=== PATIENT | female | born 1940 | race Caucasian/White ===

== ENCOUNTER → 2017-04-18 | Outpatient (CLI) | payer OTHER, MEDICARE ==
[~2017-04-18] MED LIST: ASPI-232 PO; ATOR10TA88 PO; CALC500T83 PO; CHOL100027 PO; GLUC10007 PO; LPR25 PO; MULT-513 PO; NAPR220T40 PO; PRN10125 PO
== END | disposition home or self-care (01) ==
LOC: C.RDSM 13:23
PROVIDERS: ATTEND Orthopaedic Surgery Sports Medicine
DX: M25.561 Pain in right knee (principal); M25.562 Pain in left knee

== ENCOUNTER → 2017-05-07 | Outpatient (CLI) | payer OTHER, MEDICARE ==
--- NOTE | 2017-05-07 13:10 | MAMMOGRAPHY REPORT ---
BILATERAL DIGITAL SCREENING MAMMOGRAM WITH CAD: 05/07/2017 CLINICAL HISTORY: Routine screening. TECHNIQUE: Bilateral CC and MLO views were obtained. Current study was also evaluated with a Compute r Aided Detection (CAD) system. COMPARISON: Comparison is made to exams dated: 05/03/2016 mammogram, 04/27/2015 mammogram, 04/22/2014 calista mogram, 04/17/2013 mammogram, 04/15/2012 mammogram, and 04/10/2011 mammogram - [facility]. BREAST COMPOSITION: There are scattered areas of fibroglandular density in both breasts. FINDINGS: There is a focal asymmetry with possible associated calcification in the 6:00 middle one t hird of the left breast, for which additional spot magnification views and possible ultrasound are re commended. A possible area of architectural distortion in the anterior superior left breast, only se en on the MLO view. Although this most likely represents normal overlapping fibrolinear markings, ad ditional spot compression tomosynthesis views and possibly ultrasound are recommended. There are mild vascular calcifications bilaterally. No other suspicious mass, architectural distortio n or cluster of microcalcifications is seen. IMPRESSION: ACR BI-RADS CATEGORY 0: INCOMPLETE EVALUATION: NEED ADDITIONAL IMAGING EVALUATION The focal asymmetry with possible associated calcification in the 6:00 left breast, and possible area of architectural distortion in the superior anterior left breast need additional imaging evaluation. The patient will be called to schedule an appointment. Approximately 10% of breast cancers are not detected with mammography. A negative mammographic report should not delay biopsy if a clinically suggestive mass is present. Irene Zimmerman M.D. ay/:05/07/2017 12:23:27 Power Manager: Risa Baldwin RT(R)(M), [facility] letter sent: Addl Imaging 0 BI-RADS Code: ACR BI-RADS Category 0: Incomplete Evaluation: Need Additional Imaging Evaluation
== END | disposition home or self-care (01) ==
LOC: C.MAMM 10:26
PROVIDERS: ATTEND Internal Medicine
DX: Z12.31 Encounter for screening mammogram for malignant neoplasm of breast (principal); N64.89 Other specified disorders of breast

== ENCOUNTER → 2017-05-10 | Outpatient (CLI) | payer OTHER, MEDICARE ==
--- NOTE | 2017-05-10 15:58 | MAMMOGRAPHY REPORT ---
UNILATERAL LEFT DIGITAL DIAGNOSTIC MAMMOGRAM TOMOSYNTHESIS AND TARGETED LEFT ULTRASOUND: 05/10/2017 CLINICAL HISTORY: Callback from screening mammogram for left breast calcifications, asymmetry, and po ssible distortion. TECHNIQUE: Breast tomosynthesis in addition to standard 2D mammography was performed. Spot compress ion left MLO 2-D and tomosynthesis images and spot magnification left CC and ML views were obtained. COMPARISON: Comparison is made to exams dated: 05/07/2017 mammogram, 05/03/2016 mammogram, 04/27/2015 ma mmogram, 04/22/2014 mammogram, 04/17/2013 mammogram, and 04/15/2012 mammogram - [facility]. BREAST COMPOSITION: There are scattered areas of fibroglandular density in the left breast. FINDINGS: Spot magnification views of the left breast demonstrate a round 4 mm mass with obscured ma rgins in the left 6:00 breast. A single calcification is seen within the mass, which is smudgy and p unctate on the cc view and becomes more linear on the lateral view suggestive of layering within a cy st. The previously described area of questionable architectural distortion in the left superior madeline st does not persist on the additional views; the tissue in this region has the appearance of normal f ibroglandular tissue on the tomosynthesis images. Targeted ultrasound was performed of the left 6:00 breast in the region of the mammographic mass. In the left 6:00 periareolar breast, there is a round circumscribed anechoic 4 x 3 x 4 mm mass. This c orresponds with the mammographic mass and associated layering calcification and is consistent with a benign cyst. IMPRESSION: ACR BI-RADS CATEGORY 2: BENIGN, TARGETED ULTRASOUND ACR BI-RADS CATEGORY 2: BENIGN The mammographic mass and associated internal layering calcification in the left 6:00 breast correspo nds with a benign 4 mm simple cyst on ultrasound. There is no mammographic or targeted sonographic e vidence of malignancy. A 1 year screening mammogram is recommended. The patient has been verbally no tified of the results. Approximately 10% of breast cancers are not detected with mammography. A negative mammographic report should not delay biopsy if a clinically suggestive mass is present. Carmen Jha M.D. /:05/10/2017 13:23:25 Roll Shop Supervisor: Kim WILKES(R)(M), [facility] letter sent: Normal / BI-RADS Code: ACR BI-RADS Category 2: Benign Ultrasound BI-RADS: ACR BI-RADS Category 2: Benign
== END | disposition home or self-care (01) ==
LOC: C.MAMM 12:59
PROVIDERS: ATTEND Internal Medicine
DX: N63 Unspecified lump in breast (principal); R92.1 Mammographic calcification found on diagnostic imaging of breast

== ENCOUNTER → 2018-04-11 | Outpatient (CLI) | payer OTHER, MEDICARE ==
[~2018-04-11] MED LIST changes: +ATOR10TA82 PO; -ATOR10TA88 PO
== END | disposition home or self-care (01) ==
LOC: C.RDSM 10:30
PROVIDERS: ATTEND Orthopaedic Surgery Sports Medicine
DX: M17.0 Bilateral primary osteoarthritis of knee (principal)

== ENCOUNTER 2019-03-04 08:23 | Inpatient (IN) ==
--- NOTE | 2019-02-04 16:29 | PAT Medication Instructions ---
Medication Instructions Date of Service February 04, 2019 Home Medications alendronate 70 mg PO WK atorvastatin 40 mg PO QPM lisinopril 5 mg PO QAM loratadine 10 mg PO QAM metoprolol tartrate 100 mg PO BID multivitamin 1 tab PO QAM tramadol 50 mg PO Q6H PRN warfarin 4 mg PO QPM Centrum Silver Women 1 tab PO QAM cholecalciferol (vitamin D3) [Vitamin D3] 2,000 unit PO QAM gabapentin 200 mg PO BID Continue as directed alendronate 70 mg PO WK ASK your prescriber and surgeon warfarin 4 mg PO QPM DO NOT take the morning of surgery lisinopril 5 mg PO QAM loratadine 10 mg PO QAM multivitamin 1 tab PO QAM Centrum Silver Women 1 tab PO QAM cholecalciferol (vitamin D3) [Vitamin D3] 2,000 unit PO QAM Take morning of surgery With a small sip of water, OTHERWISE NOTHING TO EAT OR DRINK AFTER MIDNIGHT: metoprolol tartrate 100 mg PO BID tramadol 50 mg PO Q6H PRN (okay to take up to 4 hours prior to surgery if needed) gabapentin 200 mg PO BID Take evening before surgery atorvastatin 40 mg PO QPM metoprolol tartrate 100 mg PO BID tramadol 50 mg PO Q6H PRN (if needed) gabapentin 200 mg PO BID Other Notes If you have any questions please call us at [phone] or [phone] or [phone] or [phone]
--- NOTE | 2019-02-05 12:45 | Anesthesiology Consultation ---
Date of Service February 05, 2019 Assessment & Plan (1) Encounter for pre-operative examination: - Cardio: 01/29/19: "should her echocardiogram come back unremarkable then I would place her at a moderate risk for any adverse perioperative cardiovascular event with her risk being approximately less than 5%. She was further counseled that no further cardiac testing or venture would further lower that risk." ECHO done 02/24 and reviewed by cardio: 02/24/19: "only mild mitral stenosis present.. risk as previously discussed." - PCP: 02/06/19: Pt seems to be at low cardiac risk for this minor surgery but due to uncontrolled AFib needs to adjust meds and echo done before clearance. Metoprolol dose increased. ECHO scheduled for 02/24. - Check coags AM DOS Chart Review Chart Review: Acceptable Risk for Surgery and Patient seen in Pre Admission Testing Teaching & Discussion Pre-Anesthesia Teaching/Discussion Notes: Instructed NPO after midnight before surgery,except medications with 15 cc of water. Medication instructions provided according to the PAT guidelines. History Surgery Operation Date: 03/04/19 10:25 Proposed Procedures p Right Total Knee Arthroplasty - Dedrick Wil Mcarthur MD Height/Weight Height: 5 ft 2 in Weight: 88.7 kg Allergies Allergy/AdvReac Type Severity Reaction Status Date / Time codeine Allergy Unknown NAUSEA AND Verified 01/30/19 13:07 VOMITING oxycodone AdvReac Mild HEADACHE, Verified 01/30/19 13:07 VOMIT Medications Home Medications Medication Instructions Recorded Confirmed Last Taken alendronate 70 mg PO WK 01/20/19 01/30/19 01/26/19 atorvastatin 40 mg PO QPM 01/20/19 01/30/19 01/29/19 lisinopril 5 mg PO QAM 01/20/19 01/30/19 01/30/19 loratadine 10 mg PO QAM 01/20/19 01/30/19 01/30/19 multivitamin 1 tab PO QAM 01/20/19 01/30/19 01/30/19 tramadol 50 mg PO Q6H PRN 01/20/19 01/30/19 Unknown warfarin 4 mg PO QPM 01/20/19 01/30/19 01/26/19 Centrum Silver Women 1 tab PO QAM 01/30/19 01/30/19 01/30/19 cholecalciferol (vitamin D3) 2,000 unit PO QAM 01/30/19 01/30/19 01/30/19 [Vitamin D3] gabapentin 200 mg PO BID 01/30/19 01/30/19 01/30/19 metoprolol tartrate 25 mg PO TID 02/11/19 02/11/19 Unknown Past Medical History Medical History Atrial fibrillation PAROXYSMAL ON WARFARIN CKD (chronic kidney disease) STAGE III Carotid artery disease S/P LEFT CEA (2014) Hyperlipidemia Hypertension Osteoarthritis Osteoporosis Spinal stenosis Exercise / Class Metabolic Activity III < 4 Walking/Shop/Light housework Past Family History Family History Family/Other Pancreatic cancer Past Surgical History Surgical History History of appendectomy History of cataract surgery History of cholecystectomy History of colonoscopy History of left-sided carotid endarterectomy 2014 History of tonsillectomy History of tooth extraction History of total abdominal hysterectomy and bilateral salpingo-oophorectomy Past Anesthesia History No Hx of Anesthesia Complications and No Family Hx of Anesthesia Complications History of PONV No Hx of PONV and Hx of Motion Sickness (REMOTE; NO RECENT ISSUES) Social History Smoking Status: Former smoker Do You Dip or Chew Tobacco: No Smoking End Date: QUIT 20 YEARS AGO Hx Alcohol Use: Yes Alcohol type: wine alcohol intake frequency: a few times a month Hx Substance Use: No substance use type: does not use Review of Systems Patient denies chest pain, shortness of breath, reflux, cough, wheezing, palpitations. Physical Exam Vital Signs VITALS BP 103/71 (per patient, BP typically low to normal range) P 90 TEMP 98.4 SP02 94%RA RESP 20 PHYSICAL Full neck and c-spine range of motion. Full TMJ range of motion. TMD 3 finger breaths Mallampati Score 2 Dentition: full dentures upper/lower; edentulous Lungs: clear throughout to auscultation Cardiac: irregular rhythm, regular rate, no murmurs noted Spine: normal Carotid arteries: negative bruit Extremities: no edema Testing Laboratory Results 02/05/19 13:00 02/05/19 13:00 PT 18.0 Seconds (9.0-12.0) H 02/05/19 13:00 INR 1.8 (0.9-1.1) H 02/05/19 13:00 APTT 31.9 Seconds (21.0-31.0) H 02/05/19 13:00 Blood Type O Positive 02/05/19 13:00 Antibody Screen NEGATIVE 02/05/19 13:00 02/05/19 13:00 Urine Culture - Final Urine,Clean Catch More than three types of organisms present, all high counts mixed probable skin etta - No further identifications or sensitivities to follow. Electrocardiogram Date: 01/29/19 A. fib with RVR at 110bpm (EKG done at cardio preop evaluation. No medication changes made. HR 90 at subsequent PAT evaluation on 02/05/19*) Echocardiogram Date: 02/24/19 LVEF 60-64%. No RWMA. Moderately increased cLV wall thickness. Moderate LAE. Mi ldly calcified AV. Moderate mitral annular calcification. Moderately calcified MV leaflets. Mild mitral stenosis. Moderate TR. Other Testing Carotid artery duplex: 02/24/19: Right carotid artery duplex examination indicates evidence of 50-69% stenosis of the internal carotid artery. Left carotid artery duplex examination indicates evidence of less than 50% stenosis of the internal carotid artery. B/L vertebral artery demonstrates antegrade flow.
[2019-02-05 13:58] LABS: Basophils # (auto) 0.03 K/uL (0-0.2); Basophils % (auto) 0.3 %; Eosinophils # (auto) 0.12 K/uL (0-0.5); Eosinophils % (auto) 1.3 %; Hematocrit (blood only) 42.1 % (37-47); Hemoglobin 13.7 g/dL (12.0-16.0); Immature Granulocytes # (auto) 0.03 K/uL (0.00-0.02); Immature Granulocytes % (auto) 0.3 %; Lymphocytes # (auto) 1.84 K/uL (1.2-3.4); Lymphocytes % (auto) 20.6 %; Mean Corpuscular Hemoglobin 31.5 pg (25-34); Mean Corpuscular Hgb Conc 32.5 g/dL (32-36); Mean Corpuscular Volume 96.8 fL (80-100); Mean Platelet Volume 10.2 fL (7.4-10.4); Monocytes % (auto) 7.8 %; Neutrophils # (auto) 6.22 K/uL (1.4-6.5); Neutrophils % (auto) 69.7 %; Platelet Count 236 K/uL (130-400); RDW Coefficient of Variation 14.4 % (11.5-14.5); RDW Standard Deviation 51.6 fL (36.4-46.3); Red Blood Count 4.35 M/uL (4.2-5.4); White Blood Count 8.94 K/uL (4.8-10.8)
[2019-02-05 14:15] LABS: INR 1.8 (0.9-1.1); Partial Thromboplastin Ratio 1.2; Partial Thromboplastin Time 31.9 Seconds (21.0-31.0)
[2019-02-05 14:20] LABS: Albumin Level 3.8 gm/dl (3.4-5.0); BUN Creatinine Ratio 18.6 (10-20); Bilirubin Direct 0.1 mg/dl (0-0.2); Calcium 9.9 mg/dl (8.5-10.1); Est GFR (African American) 45.3; Est GFR (Non-African American) 39.1
[2019-02-05 14:23] LABS: Bilirubin,Total 0.6 mg/dl (0.2-1); Total Protein 7.5 gm/dl (6.4-8.2)
[~2019-03-04 08:23] MED LIST changes: -ASPI-232 PO; -ATOR10TA82 PO; +BUPIVACAINE 0.5 % 5 MG/1 ML PF 10ML VIAL ONE; -CALC500T83 PO; +CEFAZOLIN 2000MG 2,000 MG/15 ML SYR IV SCH; -CHOL100027 PO; +CeleBREX 200 MG CAP PO SCH; +EPINEPHrine INJ 1 MG/ML AMP ONE; -GLUC10007 PO; -LPR25 PO; +LR 500ML BOLUS, THEN 15ML/HR IV SCH; +LR 60ML/HR IV SCH; -MULT-513 PO; -NAPR220T40 PO; -PRN10125 PO; +ROPIVACAINE 0.5% 5 MG/ML 30 ML VIAL ONE; +ROPIVACAINE 0.5% HCL/PF 150 MG, BUPIVACAINE 0.5% MPF 30 ML, EPINEPHrine 0.15 MG, Ketoro... INFIL SCH; +TRANEXAMIC ACID 1,000 MG **IV Intra-op IV SCH; +TRANEXAMIC ACID 1,000 MG **IV Pre-op IV SCH
[2019-03-04 09:18] LABS: INR 1.1 (0.9-1.1); Partial Thromboplastin Time 27.1 Seconds (21.0-31.0); Prothrombin Time 11.5 Seconds (9.0-12.0)
[2019-03-04] MEDS ORDERED: MIDAZOLAM HCL 1 MG/ML 2ML VIAL ONE (09:48)
[2019-03-04] MEDS ORDERED: fentaNYL citrate 100 MCG/2 ML VIAL ONE (09:48)
[2019-03-04] MEDS ORDERED: LIDOCAINE HCL 2% 2 ML VIAL/AMP(20MG/ML) INFIL ONE (09:48)
[2019-03-04] MEDS ORDERED: PROPOFOL IV EMULSION 10 MG/ML 20 ML VIAL IV ONE (09:48)
--- NOTE | 2019-03-04 10:13 | History & Physical Bridge Note ---
Date of Service March 04, 2019 History & Physical Bridge Note I have examined the patient, reviewed the History & Physical and in the interval since the performance of the History & Physical I have noted the following changes of clinical significance: no changes noted
[2019-03-04] MEDS ORDERED: ORTHO JOINT ANESTHETIC ONE (10:15)
--- NOTE | 2019-03-04 12:55 | Operative Report ---
Post Operative Report Pre & Post Diagnosis Operation Date: 03/04/19 10:20 Pre-Op Diagnosis: Right Knee Osteoarthritis Post-Op Diagnosis: Right Knee Osteoarthritis Procedure Operation Date: 03/04/19 10:20 Actual Procedures p Right Total Knee Arthroplasty(Right) - Dedrick Mcarthur MD Surgeon Dedrick Mcarthur MD Senior Auditor Michael gonzales PA-C (no fellow avail) Estimated Blood Loss 75 Findings See Below Preop ROM -- There was 10 degrees to 125 degrees of flexion Ligamentous examination -- revealed stable Radha, posterior drawer, varus and valgus stress at 0 and 30 degrees. [place] Type IV changes of medial compartment, type IIIIV changes in the patellofemoral compartment, type II changes in the lateral compartment. Fluids 600 cc Specimens Right knee contents. Drains n/a Anesthesia Type MAC Spinal Regional Complications none Indications This is a 78-year-old female who has clinical and radiographic findings consistent with osteoarthritis of the a right knee. I recommended that a right total knee replacement be performed. The patient understands the risks of surgery, which include but not limited to: bleeding, infection, re-operation, damage to nerves and arteries, continued knee pain, knee stiffness, DVT, and . The patient understands all of these instructions and explanations, all of his questions have been satisfactorily addressed and the patient has elected to proceed. Informed consent was signed. Description of Procedure IMPLANTS: 1. Femur: Triathlon #4 Right PS. 2. Tibia: Triathlon #4 [place]. 3. Insert: Triathlon #4 x 11 mm PS X3 poly. 4. Patella: Triathlon A32 x 10 mm X3 poly. 5. Simplex cement. Procedure: The patient was taken to the Operating Room and placed in the supine position after spinal and adductor canal nerve block was administered. My initials and a multidisciplinary time-out were used to identify the right leg as the correct operative limb. A tourniquet was placed high in the thigh. Prior to the incision, 2 grams of intravenous Ancef were given. The right leg was then prepped and draped in a standard sterile fashion. An Esmarch was used to exsanguinate the leg and the tourniquet was inflated to 250 mmHg. The planned mid-line 20 cm incision was created exposing the extensor mechanism. The medial parapatellar arthrotomy was made and the patella was everted. The patella was addressed first. It was prepared by reaming from 22 mm down to 12 mm. An A32 button was found to fit best. The peg holes were made in the standard fashion. The femur was addressed next and the guide sj was placed intramedullary. The initial cutting block was placed with 5 degrees of valgus and removing 10 mm for the anterior cut. The cut was made and the 4-in-1 cutting block for a size 4 femur was placed. These cuts and the cuts to place the box were made in the standard fashion. Our attention was then drawn to the tibia cut with the external cutting guide, taking 2 mm from the medial low side. There was sufficient extension and flexion gap to fit a 11 mm spacer. A #4 Tibial baseplate fit well. A trial with a 11 mm spacer showed excellent stability in both flexion and extension, with good ligament balance. Range of motion of 0-130 degrees. The tibial baseplate was pinned and the final preparation for the keel and stem was made. All the trial components were tested again, with good stability and thumbs free tracking of the patella. All components were removed. The tourniquet was deflated. Hemostasis was obtained. 90 ml of total knee cocktail were injected into the soft tissues and periosteum. A bone plug was placed in the femur and covered with bone wax. After a 15 minute break, the limb was exsanguinated again and the tourniquet was re-inflated. All surfaces were copiously irrigated prior to placement of the components. The femoral component and Tibial baseplate were placed with the first and an 11 mm X3 poly was placed. Next the Patellar button was placed using the same batch Simplex cement. Once the cement had cured, the excellent range of motion and stability were unchanged. The extensor mechanism was closed with 1-0 and 0 Vicryl with the knee bent approximately 60 degrees in a standard fashion. The peritenon and deep fascia was closed with 2-0 Vicryl. The subcutaneous layer was closed with 3-0 Vicryl. The skin was closed with Zipline. The limb was cleaned and dried. 4x4 dressing was placed over top followed by ABDs, sterile Webril, and a foot to thigh Robin bandage. The patient was then transferred to the Recovery Room in stable condition. The sponge and needle counts were correct. POST-OP INSTRUCTIONS: The patient will be WBAT. The patient will be admitted to the hospital. The patient will use the knee immobilizer when ambulating and standing until good quad control is achieved. Labs will be obtained during her stay. DVT prophylaxis will included placing her back on her back on Coumadin, TEDs, and mechanical foot pumps. The dressing will be changed prior to their discharge or postop day #2 and covered with a Silverlon dressing, whichever comes first. I attest to the content of the Intraoperative Record and any orders documented therein. Any exceptions are noted below.
--- NOTE | 2019-03-04 12:55 | Post Operative Brief Note ---
Immediate Post Op Note v1 Date of Surgery March 04, 2019 Pre & Post Diagnosis Operation Date: 03/04/19 10:20 Pre-Op Diagnosis: Right Knee Osteoarthritis Post-Op Diagnosis: Right Knee Osteoarthritis Procedure Operation Date: 03/04/19 10:20 Actual Procedures p Right Total Knee Arthroplasty(Right) - Dedrick Mcarthur MD Surgeon Dedrick Mcarthur MD Pattern Grader Cutter Michael gonzales PA-C (no fellow avail) Estimated Blood Loss 75 Findings Consistent with Post-Op Diagnosis Fluids 600 cc Specimens Right knee contents. Anesthesia Type MAC Spinal Regional Complications none
[2019-03-04] MEDS ORDERED: bisacodyL 10 MG SUPP PR PRN (13:01)
[2019-03-04] MEDS ORDERED: ALUMINUM/MAGNESIUM SUSP 30 ML UDC PO PRN (13:01)
[2019-03-04] MEDS ORDERED: DiphenhydrAMINE HCL 50 MG/ML VIAL IV PRN (13:01)
[2019-03-04] MEDS ORDERED: MAGNESIUM HYDROXIDE SUSP 30 ML UDC PO PRN (13:01)
[2019-03-04] MEDS ORDERED: METOCLOPRAMIDE HCL INJ 5 MG/ML 2 ML VIAL IV PRN (13:01)
[2019-03-04] MEDS ORDERED: NALOXONE HCL 0.4 MG/1 ML VIAL/CARP IV PRN (13:01)
[2019-03-04] MEDS ORDERED: HYDROmorphone INJ 0.5 MG/0.5 ML SYR IV PRN (13:07)
--- NOTE | 2019-03-04 13:21 | Operative Report ---
Post Operative Report Pre & Post Diagnosis Operation Date: 03/04/19 10:20 Pre-Op Diagnosis: Right Knee Osteoarthritis Post-Op Diagnosis: Right Knee Osteoarthritis Procedure Operation Date: 03/04/19 10:20 Actual Procedures p Right Total Knee Arthroplasty(Right) - Dedrick Mcarthur MD Surgeon Dedrick Mcarthur MD Executive Meeting Manager Michael gonzales PA-C (no fellow avail) Estimated Blood Loss 75 Findings Consistent with Post-Op Diagnosis Specimens soft tissue and bone Complications none Indications See Dr Mcarthur operative report for full details. Description of Procedure See Dr Mcarthur operative report for full details. I was certified surgical tech/first assistant during entire case to include prepping, draping, limb and instrument handling, wound closure, dressings. I attest to the content of the Intraoperative Record and any orders documented therein. Any exceptions are noted below.
--- NOTE | 2019-03-04 13:44 | Anesthesiology Progress Note ---
Date of Service March 04, 2019 Anesthesia Post Procedure Vital Signs Vital Signs: Temp Pulse Pulse Resp BP Pulse Ox 03/04/19 13:35 94 H 12 127/88 99 03/04/19 13:25 92 H 17 127/96 95 03/04/19 13:15 92 H 22 107/80 94 03/04/19 13:06 36.6 C 101 H 20 108/71 95 03/04/19 08:56 36.8 C 93 H 18 122/76 93 Pain Intensity Right Knee: Pain Intensity: 0 Transfer of Care Handoff Completed per policy Notes Mental Status: alert / awake / arousable Patient Amnestic to Procedure: Yes Nausea / Vomiting: adequately controlled Pain: adequately controlled Airway Patency, RR, SpO2: stable & adequate BP & HR: stable & adequate Hydration State: stable & adequate Neuraxial Anesthesia: was administered and sensory block is resolving Anesthetic Complications: no major complications apparent and Pt Satisfied with anesthetic care
--- NOTE | 2019-03-04 13:44 | XRay Report ---
XR knee RT 2V routine CLINICAL HISTORY: Surgical Post Op COMPARISON: None. DISCUSSION: Anatomic alignment posttotal right knee arthroplasty. Good contact between prosthetic com ponent and underlying Bone. Expected postoperative soft tissue change. IMPRESSION: Anatomic alignment posttotal right knee arthroplasty. The above report was generated using voice recognition software. It may contain grammatical, syntax or spelling errors. Electronically signed by: Benoit Lemus M.D. 03/04/2019 1:43 PM
[2019-03-04] MEDS: METOPROLOL TARTRATE 25 MG TAB PO SCH ×3 (15:50→20:12)
[2019-03-04] MEDS ORDERED: WARFARIN SOD 5 MG TAB PO ONE (16:00)
[2019-03-04] MEDS ORDERED: WARFARIN SOD 5 MG TAB PO SCH (17:00)
[2019-03-04] MEDS: ORTHO WARFARIN NOMOGRAM SCH (17:02)
--- NOTE | 2019-03-04 17:31 | Hospitalist Consultation ---
Date of Consultation March 04, 2019 Assessment & Plan (1) Status post right knee replacement: This is an 78yo F with a PMH of HTN, paroxysmal atrial fibrillation on Coumadin, CKD III, h/o L carotid endarterectomy and other medical problems listed below who is POD #0 s/p R TKA by Dr. Mcarthur. -POD#0 s/p R TKA by Dr. Mcarthur -Pt is doing well post-operatively -Per ortho for pain control, wound care, anticoagulation and activities -Monitor H&H (EBL: 75 ml, pre-op hgb of 13.7). Continue incentive spirometry, PT/OT when appropriate (2) Paroxysmal atrial fibrillation: Recently had Lopressor dose increased to 37.5mg TID. Will continue -Coumadin held 5 days pre-operatively, resumed dose of 5mg this afternoon -Monitor daily INR (3) Hypertension: Normotensive -Continue home dose Lopressor, lisinopril (4) CKD (chronic kidney disease), stage III: Pre-operative creatinine of 1.29 with GFR of 39.1 -Monitor with daily BMP (5) Hyperlipidemia: Continue statin DVT Ppx: Per primary PCP: [facility] Patient seen in collaboration with Dr. Davidson. Please see addendum. Supervising Physician Co-Signing Physician Notes 78 yo F post op R knee surgery today. She is doing well, recently took messi 10mg 1 hr ago and BP is 160/100. She feels her pain is bearable and the medication is starting to work although not quite effective yet. She reports taking tramadol BID at home for her OA pain which she still feels in addition to the new post-op pain. She was instructed to take metoprolol tartrate 100mg pre- operatively, which she took this morning at home. This was based off an [facility] medication list where her home medication was incorrectly listed as 100mg BID. She actually takes it 37.5mg PO TID, and this has been continued. Her heart rate is elevated because she has not had any beta-cinthia since this morning and this is short-acting, in addition to the post-op recovery and stress including pain. Her BP is also up likely as a result of pain and not having her lisinopril today. On exam she is calm and comfortable in no acute distress. She is moving around the bed with ease. R leg is NVI. Cardiac exam revealed an irregular rhythm and S1/2 heard without murmurs, and lungs revealed minor crackles to ausculatation at the left base. She was counseled to stay ahead of her pain by asking for the pain medication as she needs it, and she was counseled that narcotics can cause constipation. She is on stool softeners. 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 If not needed, will plan to continue with lisinopril in the morning and warfarin has already been started, metoprolol TID as ordered. Thank you for this consultation. Deb Davidson DO History of Present Illness Reason for Consultation: post op medical management Attending Physician: Dedrick Mcarthur MD History of Present Illness This is an 78yo F with a PMH of HTN, paroxysmal atrial fibrillation on Coumadin, CKD III, h/o L carotid endarterectomy and other medical problems listed below who is POD #0 s/p R TKA by Dr. Mcarthur. Patient is feeling well postoperatively, with minimal surgical site pain. Denies any distal numbness or paresthesias. Tolerating dinner without any nausea or vomiting. Denies any chest pain or shortness of breath. Has history of paroxysmal A. fib for which he takes Coumadin, which was held for 5 days preoperatively. Also recently had Lopressor dose increased to 37.5 mg 3 times daily. Denies any fever, chills, lightheadedness, headache, wheezing, abdominal pain, dysuria, diarrhea or constipation. Last BM this morning. PCP is Dr. Duncan. Allergies Allergy/AdvReac Type Severity Reaction Status Date / Time codeine Allergy Unknown NAUSEA AND Verified 03/04/19 08:49 VOMITING oxycodone AdvReac Mild HEADACHE, Verified 03/04/19 08:49 VOMIT Home Medications Home Medications Medication Instructions Recorded Confirmed Type alendronate 70 mg PO WK 01/20/19 03/04/19 History atorvastatin 40 mg PO QPM 01/20/19 03/04/19 History lisinopril 2.5 mg PO QAM 01/20/19 03/04/19 History loratadine 10 mg PO QAM 01/20/19 03/04/19 History multivitamin 1 tab PO QAM 01/20/19 03/04/19 History tramadol 50 mg PO Q6H PRN 01/20/19 03/04/19 History warfarin 4 mg PO QPM 01/20/19 03/04/19 History Centrum Silver Women 1 tab PO QAM 01/30/19 03/04/19 History cholecalciferol (vitamin D3) 2,000 unit PO QAM 01/30/19 03/04/19 History [Vitamin D3] gabapentin 200 mg PO BID 01/30/19 03/04/19 History metoprolol tartrate 37.5 mg PO TID 02/11/19 03/04/19 History Patient History Medical History Paroxysmal atrial fibrillation (Chronic) CKD (chronic kidney disease), stage III (Chronic) Hyperlipidemia (Chronic) Hypertension (Chronic) Osteoarthritis (Chronic) Carotid artery disease (Chronic) S/P LEFT CEA (2014) Osteoporosis (Chronic) Spinal stenosis (Chronic) Surgical History History of left-sided carotid endarterectomy (Chronic) 2014 History of appendectomy (Chronic) History of cataract surgery (Chronic) History of cholecystectomy (Chronic) History of tonsillectomy (Chronic) History of tooth extraction (Chronic) History of total abdominal hysterectomy and bilateral salpingo-oophorectomy (Chronic) Family History Family/Other Pancreatic cancer Other Cancer Stroke Social History Preferred Language: [place] Communication Ability: Effective Beliefs That Will Affect Care: None Current Living Situation: Alone Current Living Situation Comment: LIVES IN AN APARTMENT - SINGLE STORY Other Information That Helps Us Care for You: Yes (HAS LIFE ALERT) Feels Safe at Home: Yes Safety Concerns: Feels Safe At This Time Smoking Status: Former smoker Do You Dip or Chew Tobacco: No Smoking End Date: QUIT 20 YEARS AGO Second Hand Exposure: No Hx Alcohol Use: Yes Alcohol type: wine Alcohol Intake Frequency: Weekly Hx Substance Use: No Review of Systems Review of Systems: At least ten systems reviewed and negative except as noted in the HPI. Physical Exam Physical Exam: General Appearance: WD/WN, no apparent distress, resting com fortably eating dinner Head: normocephalic, atraumatic Eyes: normal inspection, PERRL, EOMI ENT: hearing grossly normal, pharynx normal (moist mucous membranes) Neck: supple, no JVD, no adenopathy Respiratory/Chest: lungs clear to auscultation. No wheezes, rales or rhonci. No respiratory distress or accessory muscle use Cardiovascular: regular rate, rhythm, no murmur appreciated, normal peripheral pulses Abdomen/GI: normal bowel sounds, soft, non-tender to palpation Extremities/Musculoskelatal: R knee with surgical dressing in place, clean/dry/intact. No calf tenderness, normal capillary refill, no pedal edema Neurologic/Psych: alert, normal mood/affect, oriented x 3 Skin: normal color, warm/dry Results & Data Vital Signs (Past 12 Hours) Vital Signs Temp Pulse Pulse Pulse Resp BP Pulse Ox 03/04/19 16:32 36.4 C L 97 H 17 137/90 96 03/04/19 15:34 36.7 C 91 H 18 128/84 96 03/04/19 15:06 36.5 C 77 17 145/80 H 98 03/04/19 14:30 36.7 C 91 H 18 130/87 97 03/04/19 14:15 88 16 128/75 98 03/04/19 14:05 36.5 C 84 20 116/87 99 03/04/19 13:55 87 16 122/63 97 03/04/19 13:45 100 H 20 122/84 98 03/04/19 13:35 94 H 12 127/88 99 03/04/19 13:25 92 H 17 127/96 95 03/04/19 13:15 92 H 22 107/80 94 03/04/19 13:06 36.6 C 101 H 20 108/71 95 03/04/19 08:56 36.8 C 93 H 18 122/76 93 Laboratory Results Pertinent pre-op labs (02/05/19): Hgb: 13.7 Cr: 1.29
[2019-03-04] MEDS: ASCORBIC ACID 500 MG TAB PO SCH (18:24)
[2019-03-04] MEDS: FERROUS GLUCONATE 324 MG TAB PO SCH (18:25)
[2019-03-04] MEDS: CEFAZOLIN 2000MG 2,000 MG/15 ML SYR IV SCH (18:26)
[2019-03-04] MEDS: OXYCODONE HCL IR 5 MG TAB (IMMEDIATE RELEASE) PO PRN (19:08)
[2019-03-04] MEDS: DOCUSATE SODIUM 100 MG CAP PO SCH (20:13)
[2019-03-04] MEDS: SENNA 8.6 MG TAB PO SCH (20:14)
[2019-03-04] MEDS: GABAPENTIN 100 MG CAP PO SCH (20:15)
[2019-03-04] MEDS: ATORVASTATIN 40 MG TAB PO SCH (20:15)
[2019-03-04] MEDS: SODIUM CHLORIDE 0.9% 1000ML 1,000 ML IV SCH ×2 (20:30→22:33)
[2019-03-05] MEDS: CEFAZOLIN 2000MG 2,000 MG/15 ML SYR IV SCH (01:30)
[2019-03-05] MEDS ORDERED: METOPROLOL TARTRATE 1 MG/ML VIAL IV ONE (01:40)
[2019-03-05] MEDS: ONDANSETRON INJ 2 MG/ML 2 ML VIAL IV PRN (01:44)
[2019-03-05] MEDS ORDERED: FUROSEMIDE 20 MG in SYRINGE 0 ML IV ONE (02:07)
[2019-03-05] MEDS ORDERED: FUROSEMIDE 40 MG/4 ML VIAL IV ONE (02:30)
--- NOTE | 2019-03-05 03:51 | Communication Note ---
Date of Service: March 05, 2019 Received call from RN that patient was tachycardiac up to 140 and hypoxic as low as 79%. Placed on O2 3 LPM and O2 sat increased to 93%. Patient was comfortable at time of my assessment. No chest pain, palpitations, cough, SOB. Exam: General- NAD Neck- + JVD Lungs- clear Heart- irregular, tachy, II/ sys murmur at apex, no gallop appreciated Extr- trace pretibial edema EKG performed at 0202 showed AF at 135 / min, inverted T-waves III, aVF. CXR demonstrated cardiomegaly and pulmonary vascular congestion (per undersigned; formal interpretation pending). A/P: Rapid atrial fibrillation. History of PAF, apparently now persistent (preop EKG showed AF at 110 / min). Continue metoprolol for rate control with additional dosing as necessary. Hypoxia may be due to fluid overload from IV fluids and / or postop atelectasis. Preop echo 02/24/19 showed normal LVEF. IV furosemide x 1. Incentive spirometry. Follow.
[2019-03-05] MEDS: OXYCODONE HCL IR 5 MG TAB (IMMEDIATE RELEASE) PO PRN ×3 (03:56→17:20)
--- NOTE | 2019-03-05 06:39 | XRay Report ---
XR chest 1V portable CLINICAL HISTORY: hypoxia dyspnea COMPARISON STUDY: 10/17/2014 FINDINGS: Mild cardiac megaly. Mild prominence of pulmonary vasculature. Calcification of the mitral annulus. Diaphragms are smooth. IMPRESSION: Components of congestive heart failure The above report was generated using voice recognition software. It may contain grammatical, syntax or spelling errors. Electronically signed by: Benoit Lemus M.D. 03/05/2019 6:38 AM
[2019-03-05 06:57] LABS: Hematocrit (blood only) 34.4 % (37-47); Hemoglobin 11.2 g/dL (12.0-16.0); Mean Corpuscular Hemoglobin 31.4 pg (25-34); Mean Corpuscular Hgb Conc 32.6 g/dL (32-36); Mean Corpuscular Volume 96.4 fL (80-100); Mean Platelet Volume 10.1 fL (7.4-10.4); Platelet Count 167 K/uL (130-400); RDW Coefficient of Variation 14.7 % (11.5-14.5); RDW Standard Deviation 51.7 fL (36.4-46.3); Red Blood Count 3.57 M/uL (4.2-5.4); White Blood Count 11.03 K/uL (4.8-10.8)
[2019-03-05 07:06] LABS: INR 1.2 (0.9-1.1); Prothrombin Time 11.9 Seconds (9.0-12.0)
[2019-03-05 07:30] LABS: BUN Creatinine Ratio 15.4 (10-20); Creatinine Clr Calc Pharmacy 38.6 ml/min; Est GFR (African American) 47.5; Potassium 4.2 mmol/L (3.5-5.1)
[2019-03-05] MEDS: DOCUSATE SODIUM 100 MG CAP PO SCH ×2 (07:59→20:43)
[2019-03-05] MEDS: ASCORBIC ACID 500 MG TAB PO SCH ×2 (07:59→17:27)
[2019-03-05] MEDS: GABAPENTIN 100 MG CAP PO SCH ×2 (07:59→20:37)
[2019-03-05] MEDS: MULTIVITAMIN TAB PO SCH (08:00)
[2019-03-05] MEDS: CHOLECALCIFEROL 1,000 UNITS TAB PO SCH (08:00)
[2019-03-05] MEDS: METOPROLOL TARTRATE 25 MG TAB PO SCH ×3 (08:00→20:38)
[2019-03-05] MEDS: FERROUS GLUCONATE 324 MG TAB PO SCH ×2 (08:00→17:20)
[2019-03-05] MEDS: LORATADINE 10 MG TAB PO SCH (08:00)
[2019-03-05] MEDS ORDERED: MULTIVITAMIN TAB PO SCH (09:00)
[2019-03-05] MEDS ORDERED: lisinopriL 5 MG TAB PO SCH (09:00)
--- NOTE | 2019-03-05 09:41 | Orthopedic Progress Note ---
Date of Service March 05, 2019 Assessment & Plan (1) Status post right knee replacement: POD # 1 s/p Right TKA, with A. fib last evening and episode of hypoxia, was transferred to telemetry. The patient looks good this morning, and her vitals have stabilized. Resume diet. Continue pain control. Dressing to be changed POD #2 or prior to discharge whichever comes first to [facility]. WBAT RLE. PT/OT PT: Please evaluate for ambulation without the immobilizer as she is able to demonstrate straight leg raise and good quad control. DVT Prophylaxis: TEDs on operative leg for 3 weeks minimum, Foot pumps while in hospital, Coumadin as she is on this for her A. fib. Appreciate medicine's input. D/C planning. Present on Admission?: No Subjective Complaining of tolerable Right knee pain Review of Systems Review of Systems: Denies fevers, chills, vomiting, chest pain, or shortness of breath. She did have a short bout of nausea after being given IV pain medicine last evening. Physical Exam Physical Exam: Overall the patient looks good. Breathing easily, not on any oxygen. RLE: Dressing is clean, dry, intact. Neurovascularly intact. Calf is soft and nontender. She is able to perform a straight leg raise on her own. Results & Data Vital Signs (Past 12 Hours) Vital Signs Temp Pulse Pulse Pulse Resp BP BP 03/05/19 06:59 36.4 C L 99 H 18 122/79 03/05/19 06:14 102 H 03/05/19 05:19 111 H 03/05/19 03:52 36.7 C 105 H 18 111/77 03/05/19 02:19 112 H 03/05/19 02:08 132 H 126/86 03/05/19 01:50 122 H 03/05/19 01:25 37.1 C 140 H 20 121/77 03/04/19 23:29 36.9 C 130 H 124 H 16 112/73 03/04/19 23:28 03/04/19 22:01 118 H 165/89 H Pulse Ox 03/05/19 06:59 94 03/05/19 06:14 03/05/19 05:19 03/05/19 03:52 93 03/05/19 02:19 03/05/19 02:08 03/05/19 01:50 03/05/19 01:25 94 03/04/19 23:29 93 03/04/19 23:28 79 L 03/04/19 22:01 Laboratory Results 03/05/19 03/05/19 03/05/19 Range/Units 06:23 06:23 06:23 WBC 11.03 H (4.8-10.8) K/uL RBC 3.57 L (4.2-5.4) M/uL Hgb 11.2 L (12.0-16.0) g/dL Hct 34.4 L (37-47) % MCV 96.4 (80-100) fL MCH 31.4 (25-34) pg MCHC 32.6 (32-36) g/dL RDW Std Deviation 51.7 H (36.4-46.3) fL RDW Coeff of Jorge 14.7 H (11.5-14.5) % Plt Count 167 (130-400) K/uL MPV 10.1 (7.4-10.4) fL PT 11.9 (9.0-12.0) Seconds INR 1.2 H (0.9-1.1) Sodium 140 (136-145) mmol/L Potassium 4.2 (3.5-5.1) mmol/L Chloride 106 (98-107) mmol/L Carbon Dioxide 29 (21-32) mmol/L Anion Gap 5.0 (3-11) BUN 19 H (7-18) mg/dl Creatinine 1.24 H (0.6-1.2) mg/dl Est Cr Clr Drug Dosing 38.6 ml/min Est GFR ( Amer) 47.5 Est GFR (Non-Af Amer) 41.0 BUN/Creatinine Ratio 15.4 (10-20) Glucose 139 H (70-99) mg/dl Calcium 9.0 (8.5-10.1) mg/dl Diagnostic Findings Radiographs: AP and lateral right knee, show cemented components in good position.
--- NOTE | 2019-03-05 10:46 | Hospitalist Progress Note ---
Date of Service March 05, 2019 Assessment & Plan (1) Status post right knee replacement: This is an 78yo F with a PMH of HTN, paroxysmal atrial fibrillation on Coumadin, CKD III, h/o L carotid endarterectomy and other medical problems listed below who is POD #1 s/p R TKA by Dr. Mcarthur. -POD#1 s/p R TKA by Dr. Mcarthur -Pt is doing well post-operatively -Per ortho for pain control, wound care, anticoagulation and activities -Monitor H&H (hgb of 11.2 today, pre-op hgb of 13.7). Continue incentive spirometry, PT/OT when appropriate (2) Paroxysmal atrial fibrillation: Developed A Fib with RVR with HR in 140s overnight as well as evidence of acute congestive heart failure, transferred to telemetry -HR improved to 90s on home Lopressor dose increased to 37.5mg TID. Will continue to monitor -Given 20mg IV Lasix yesterday with good diuresis. Will give Lasix 40mg PO today. Repeat CXR in AM -Coumadin held 5 days pre-operatively, resumed dose of 5mg yesterday -INR subtherapeutic at 1.2. Will order coumadin 5mg for this afternoon -Monitor daily INR (3) Hypertension: Normotensive -Continue home dose Lopressor, lisinopril (4) CKD (chronic kidney disease), stage III: Kidney function at baseline -Monitor with daily BMP (5) Hyperlipidemia: Continue statin DVT Ppx: Per primary PCP: [place] Patient seen in collaboration with Dr. Cassidy. Please see addendum. Supervising Physician Co-Signing Physician Notes Patient is seen and examined at bedside. Tachycardic, hypoxic overnight. Chest x-ray suggestive of CHF. Volume status improved with IV Lasix. Heart rate reasonably controlled this morning. Patient is asymptomatic with tachycardia. Her right knee pain at surgical site is controlled. Denies any chest pain, shortness of breath. Still requiring 2 L of nasal cannula, supplemental oxygen to maintain saturations. Will give a dose of p.o. Lasix today. Volume overload likely secondary to tachycardia, IV fluids. IV fluids discontinued. Continue Coumadin for anticoagulation. On exam patient is moderately built and nourished, no apparent distress, normocephalic atraumatic, lungs-basal crackles, normal breath sounds, irregularly irregular rhythm,+ tachycardia, no murmur, abdomen soft nontender, grossly no focal neurological deficits, right knee surgical site in dressing. Monitor INR and adjust Coumadin dose accordingly. Continue metoprolol for rate control. Agree with repeating chest x-ray in the morning. I personally reviewed the record. Patient is interviewed and examined at bedside. Patient's care is coordinated with Payton Mims PA-C. Please refer to the documentation above for details of patient's presentation and for discussion of other issues. Subjective Patient seen and examined in . Was found to develop tachycardia up to 140 and hypoxia as low as 79% last evening around 0300. EKG revealed atrial fibrillation at 135 bpm. Chest x-ray performed at this time demonstrated evidence of congestive heart failure. Was given IV Lasix 20 mg x 1 and placed on supplemental oxygen. This morning, patient is feeling better. Denies any chest pain, palpitations or shortness of breath. Is currently saturating at 94% on room air. Telemetry reviewed, revealing atrial fibrillation with heart rate in the 100s-130s overnight, with improvement to 90s this morning. Denies any fe jasmyne, chills, lightheadedness, nausea, vomiting, abdominal pain, dysuria, diarrhea or constipation. Minimal surgical site pain. Review of Systems 2 Review of Systems: At least ten systems reviewed and negative except as noted in the HPI. Physical Exam Physical Exam: General Appearance: WD/WN, no apparent distress, resting comfortably Head: normocephalic, atraumatic Eyes: normal inspection, PERRL, EOMI ENT: hearing grossly normal, pharynx normal (moist mucous membranes) Neck: supple, no JVD, no adenopathy Respiratory/Chest: Faint bibasilar crackles. No wheezes or rhonci. No respiratory distress or accessory muscle use Cardiovascular: irregular rate and rhythm, no murmur appreciated, normal peripheral pulses, 1+ BLE edema Abdomen/GI: normal bowel sounds, soft, non-tender to palpation Extremities/Musculoskelatal: R knee with surgical dressing in place, clean/dry/intact. No calf tenderness, normal capillary refill Neurologic/Psych: alert, normal mood/affect, oriented x 3 Skin: normal color, warm/dry Results & Data Vital Signs (Past 12 Hours) Vital Signs Temp Pulse Pulse Pulse Resp BP BP 03/05/19 06:59 36.4 C L 99 H 18 122/79 03/05/19 06:14 102 H 03/05/19 05:19 111 H 03/05/19 03:52 36.7 C 105 H 18 111/77 03/05/19 02:19 112 H 03/05/19 02:08 132 H 126/86 03/05/19 01:50 122 H 03/05/19 01:25 37.1 C 140 H 20 121/77 03/04/19 23:29 36.9 C 130 H 124 H 16 112/73 03/04/19 23:28 Pulse Ox 03/05/19 06:59 94 03/05/19 06:14 03/05/19 05:19 03/05/19 03:52 93 03/05/19 02:19 03/05/19 02:08 03/05/19 01:50 03/05/19 01:25 94 03/04/19 23:29 93 03/04/19 23:28 79 L
[2019-03-05] MEDS ORDERED: FUROSEMIDE 40 MG TAB PO ONE (11:15)
[2019-03-05] MEDS: ORTHO WARFARIN NOMOGRAM SCH (15:03)
--- NOTE | 2019-03-05 15:03 | Orthopedic Progress Note ---
Date of Service March 05, 2019 Assessment & Plan (1) Status post right knee replacement: POD # 1 s/p Right TKA, with A. fib last evening and episode of hypoxia, was transferred to telemetry. The patient is improving, and her vitals have stabilized. Continue regular diet. Continue pain control. Ice to right knee for pain and swelling. Dressing to be changed POD #2 or prior to discharge whichever comes first to [facility]. WBAT RLE. PT/OT---PT: Please evaluate for ambulation without the immobilizer as she is able to demonstrate straight leg raise and good quad control. DVT Prophylaxis: TEDs on operative leg for 3 weeks minimum, Foot pumps while in hospital, Coumadin as she is on this for her A. fib. Appreciate medicine's input D/C planning--D/C will be based on medicine. Patient hoping to go to [facility] or [facility]. I, Dr. Mcarthur, saw and examined the patient and agree with the above findings and plan of care discussed with my PA. Subjective Patient in bed with daughter at bedside. She says she is tired but overall pain is controlled. She denies F/C/S. Denies CP, SOB, lightheadness or dizziness. Denies N/V. She is tolerating regular diet. She had PT/OT this am and ambulated without the knee immobilizer and had no concerns. She is hoping upon D/C to go to [facility] or [facility]. Per patient, Medicine told patient she would remain in telemetry overnight. Physical Exam Physical Exam: Patient resting in bed. Nasal Canula in place. Daughter at bedside. B LE with foot pumps. R LE with dressing C/D/I. L LE with winston hose. B LE with 1+ edema, calves soft, neg homans, palpable DP and PT pulses, sensation intact to light touch, able to wiggle toes and ankles. Results & Data Vital Signs (Past 12 Hours) Vital Signs Temp Pulse Pulse Resp BP Pulse Ox Pulse Ox 03/05/19 13:21 95 03/05/19 13:17 83 L 03/05/19 11:57 36.8 C 98 H 18 122/73 95 03/05/19 06:59 36.4 C L 99 H 18 122/79 94 03/05/19 06:14 102 H 03/05/19 05:19 111 H 03/05/19 03:52 36.7 C 105 H 18 111/77 93 Laboratory Results 03/05/19 03/05/19 03/05/19 Range/Units 06:23 06:23 06:23 WBC 11.03 H (4.8-10.8) K/uL RBC 3.57 L (4.2-5.4) M/uL Hgb 11.2 L (12.0-16.0) g/dL Hct 34.4 L (37-47) % MCV 96.4 (80-100) fL MCH 31.4 (25-34) pg MCHC 32.6 (32-36) g/dL RDW Std Deviation 51.7 H (36.4-46.3) fL RDW Coeff of Jorge 14.7 H (11.5-14.5) % Plt Count 167 (130-400) K/uL MPV 10.1 (7.4-10.4) fL PT 11.9 (9.0-12.0) Seconds INR 1.2 H (0.9-1.1) Sodium 140 (136-145) mmol/L Potassium 4.2 (3.5-5.1) mmol/L Chloride 106 (98-107) mmol/L Carbon Dioxide 29 (21-32) mmol/L Anion Gap 5.0 (3-11) BUN 19 H (7-18) mg/dl Creatinine 1.24 H (0.6-1.2) mg/dl Est Cr Clr Drug Dosing 38.6 ml/min Est GFR ( Amer) 47.5 Est GFR (Non-Af Amer) 41.0 BUN/Creatinine Ratio 15.4 (10-20) Glucose 139 H (70-99) mg/dl Calcium 9.0 (8.5-10.1) mg/dl
[2019-03-05] MEDS ORDERED: WARFARIN SOD 5 MG TAB PO ONE (16:00)
[2019-03-05] MEDS: TRAMADOL HCL 50 MG TABLET PO PRN (20:36)
[2019-03-05] MEDS: SENNA 8.6 MG TAB PO SCH (20:37)
[2019-03-05] MEDS: ATORVASTATIN 40 MG TAB PO SCH (20:38)
[2019-03-05] MEDS ORDERED: ACETAMINOPHEN 325 MG TAB ONE (23:45)
[2019-03-06] MEDS ORDERED: METOPROLOL TARTRATE 1 MG/ML VIAL IV STA (01:04)
[2019-03-06] MEDS ORDERED: METOPROLOL TARTRATE 25 MG TAB PO STA (01:05)
[2019-03-06] MEDS ORDERED: METOPROLOL TARTRATE 1 MG/ML VIAL IV ONE (01:23)
[2019-03-06 06:44] LABS: Hematocrit (blood only) 31.2 % (37-47); Hemoglobin 10.4 g/dL (12.0-16.0); Mean Corpuscular Hemoglobin 32.5 pg (25-34); Mean Corpuscular Hgb Conc 33.3 g/dL (32-36); Mean Corpuscular Volume 97.5 fL (80-100); Mean Platelet Volume 9.2 fL (7.4-10.4); Platelet Count 159 K/uL (130-400); RDW Coefficient of Variation 15.2 % (11.5-14.5); RDW Standard Deviation 53.9 fL (36.4-46.3); White Blood Count 10.38 K/uL (4.8-10.8)
--- NOTE | 2019-03-06 07:19 | XRay Report ---
XR chest 1V portable CLINICAL HISTORY: reassess COMPARISON STUDY: Chest radiograph March 05, 2019. FINDINGS: No pneumothorax or pleural effusion. There is pulmonary vascular congestion. Pulmonary vito a has improved. Cardiomegaly is again noted. There is no consolidation to suggest pneumonia. IMPRESSION: Pulmonary vascular congestion, improved since prior exam. Electronically signed by: Christopher Hurtado M.D. 03/06/2019 7:18 AM
[2019-03-06 07:24] LABS: BUN Creatinine Ratio 16.2 (10-20); Calcium 8.1 mg/dl (8.5-10.1); Creatinine Clr Calc Pharmacy 38.2 ml/min; Est GFR (African American) 46.6; Est GFR (Non-African American) 40.2; Potassium 3.8 mmol/L (3.5-5.1)
[2019-03-06] MEDS: CHOLECALCIFEROL 1,000 UNITS TAB PO SCH (07:52)
[2019-03-06] MEDS: GABAPENTIN 100 MG CAP PO SCH ×2 (07:52→20:30)
[2019-03-06] MEDS: MULTIVITAMIN TAB PO SCH (07:52)
[2019-03-06] MEDS: FERROUS GLUCONATE 324 MG TAB PO SCH ×2 (07:52→17:42)
[2019-03-06] MEDS: LORATADINE 10 MG TAB PO SCH (07:53)
[2019-03-06] MEDS: METOPROLOL TARTRATE 50 MG TAB PO SCH ×3 (07:54→20:29)
[2019-03-06 08:54] LABS: INR 1.3 (0.9-1.1); Prothrombin Time 13.5 Seconds (9.0-12.0)
[2019-03-06] MEDS: OXYCODONE HCL IR 5 MG TAB (IMMEDIATE RELEASE) PO PRN ×3 (08:55→20:36)
[2019-03-06] MEDS: ASCORBIC ACID 500 MG TAB PO SCH ×2 (08:55→17:42)
[2019-03-06] MEDS: DOCUSATE SODIUM 100 MG CAP PO SCH ×2 (08:56→20:27)
--- NOTE | 2019-03-06 09:29 | Orthopedic Progress Note ---
Date of Service March 06, 2019 Assessment & Plan (1) Status post right knee replacement: POD # 1 s/p Right TKA, with A. fib and episode of hypoxia POD 0, was transferred to telemetry. Improving Continue regular diet. Continue pain control. Advised patient to not wait until pain is bad and try to stay ahead of pain with pain medication if needed. Ice to right knee for pain and swelling. Dressing changed to Silverlon and Teds applied. WBAT RLE. PT/OT---PT: ok ambulation without the immobilizer. DVT Prophylaxis: TEDs on operative leg for 3 weeks minimum, Foot pumps while in hospital, Coumadin as she is on this for her A. fib. Appreciate medicine's input. D/C planning--D/C will be based on medicine. Patient hoping to go to [facility] or [facility]. I, Dr. Mcarthur, saw and examined the patient and agree with the above findings and plan of care discussed with my PA. Subjective Patient sitting in chair at bedside. She hasnt taken a pain pill yet this am. Ate breakfast. She denies F/C/S. Denies CP, SOB, lightheadness or dizziness. Denies N/V. She says its hard for her to walk without pain, but knee is not giving way. Awaiting medicine to see her today and DC based on their recommendation. Still in telemetry. She is hoping upon D/C to go to [facility] or [facility]. Physical Exam Physical Exam: Right leg with dressings intact. Upon removal. Minimal dry blood to dressing. Zip line and cover intact. Incision C/D/I. 2+ effusion to right knee. B LE with 1+ edema, NV intact, sensation intact to light touch, neg homans, calves soft, palpable DP and PT pulses, able to wiggle toes and ankle. L LE with Ramone hose. Results & Data Vital Signs (Past 12 Hours) Vital Signs Temp Pulse Pulse Pulse Resp BP BP 03/06/19 07:30 108 H 03/06/19 06:55 36.9 C 102 H 18 110/72 03/06/19 04:08 37.2 C 108 H 24 99/63 L 03/06/19 01:39 138 H 110/70 03/06/19 00:48 37.2 C 03/06/19 00:31 118 H 03/05/19 22:57 37.9 C H 118 H 20 110/70 Pulse Ox 03/06/19 07:30 03/06/19 06:55 95 03/06/19 04:08 95 03/06/19 01:39 03/06/19 00:48 03/06/19 00:31 03/05/19 22:57 93 Laboratory Results 03/06/19 03/06/19 03/06/19 Range/Units 08:24 06:30 06:30 WBC 10.38 (4.8-10.8) K/uL RBC 3.20 L (4.2-5.4) M/uL Hgb 10.4 L (12.0-16.0) g/dL Hct 31.2 L (37-47) % MCV 97.5 (80-100) fL MCH 32.5 (25-34) pg MCHC 33.3 (32-36) g/dL RDW Std Deviation 53.9 H (36.4-46.3) fL RDW Coeff of Jorge 15.2 H (11.5-14.5) % Plt Count 159 (130-400) K/uL MPV 9.2 (7.4-10.4) fL PT 13.5 H (9.0-12.0) Seconds INR 1.3 H (0.9-1.1) Sodium 135 L (136-145) mmol/L Potassium 3.8 (3.5-5.1) mmol/L Chloride 101 (98-107) mmol/L Carbon Dioxide 28 (21-32) mmol/L Anion Gap 6.0 (3-11) BUN 20 H (7-18) mg/dl Creatinine 1.26 H (0.6-1.2) mg/dl Est Cr Clr Drug Dosing 38.2 ml/min Est GFR ( Amer) 46.6 Est GFR (Non-Af Amer) 40.2 BUN/Creatinine Ratio 16.2 (10-20) Glucose 100 H (70-99) mg/dl Calcium 8.1 L (8.5-10.1) mg/dl Magnesium 2.0 (1.8-2.4) mg/dl
--- NOTE | 2019-03-06 10:10 | Hospitalist Progress Note ---
Date of Service March 06, 2019 Assessment & Plan (1) Status post right knee replacement: POD#2 s/p R TKA by Dr. Mcarthur EBL #75 Developed A-fib RVR on POD#0 As far as ortho standpoint post-operatively pt reports some R knee pain today -pain management per ortho -wound management per ortho -PT/OT as appropriate -DVT prophylaxis per ortho - SCDs, Coumadin restarted on 03/04/19, INR: 1.3 today -incentive spirometry -Hgb: 10 today, pre-op hgb of 13.7 -Plan for discharge for inpatient rehab per ortho (2) Paroxysmal atrial fibrillation: Developed A Fib with RVR with HR in 140s overnight on POD#0 and was transferred to telemetry HR still low 100's. Pt denies SOB, CP or palpitations. Pt on home oral Lopressor 37.5mg TID, which was increased to 50mg TID this morning -Given 20mg IV Lasix yesterday with good diuresis. Will give Lasix 40mg PO tod ay. Repeat CXR in AM -Coumadin held 5 days pre-operatively, resumed dose of 5mg on 03/04/19 -INR subtherapeutic at 1.3. -Monitor daily INR -Cardiology consult (3) CHF (congestive heart failure): Overnight POD#0 developed hypoxia at 79% on RA up to low 90;s on 3L NC. Probable secondary to fluid overload. CXR consistent with fluid overload. Pt was given Lasix 20mg IV at that time Additional 40mg po Lasix given on 03/05/19 Oxygen weaned to 2L and sats 92-95%. Pt no longer SOB CXR today: improved pulmonary vascular congestion Monitor and try to wean O2, if no improvement will consider further workup (4) Hypertension: Stable -Monitor BPs -Continue Lopressor, lisinopril (5) CKD (chronic kidney disease), stage III: Cr: 1.26. Kidney function at baseline -Monitor with daily BMP (6) Hyperlipidemia: Continue statin DVT Ppx: Coumadin restarted on 03/04/19. SCDs PCP: [place] Patient seen in collaboration with Dr. Cassidy. Please see addendum. Supervising Physician Co-Signing Physician Notes Patient is seen and examined at bedside. Reports dizziness with standing, ambulation. Heart rate is fairly controlled. Metoprolol dose is increased to 50 mg 3 times daily overnight. Chest x-ray showed improved vascular congestion. Supplemental oxygen being titrated. Saturating well with minimal oxygen supplementation. Her right knee pain at surgical site is controlled. Denies any chest pain, shortness of breath. Continue Coumadin for anticoagulation. INR is 1.3. On exam patient is moderately built and nourished, no apparent distress, normocephalic atraumatic, lungs-basal crackles, normal breath sounds, irregularly irregular rhythm,+ tachycardia, no murmur, abdomen soft nontender, grossly no focal neurological deficits, right knee surgical site in dressing. Monitor INR and adjust Coumadin dose accordingly. Continue metoprolol for rate control. Cardiology consulted for input. I personally reviewed the record. Patient is interviewed and examined at bedside. Patient's care is coordinated with Deyanira Hall PA-C. Please refer to the documentation above for details of patient's presentation and for discussion of other issues. Subjective Pt seen and examined, lying in bed. Just returned to bed from using bathroom. Reports having pain to right knee, worse with ambulation. Denies any leg weakness or buckling. Denies palpitations, SOB, CP today. Having some dizziness with standing. Denies syncope. States hx dizziness in past while taking pain medications. Eating and drinking but feels decreased appetite. No BM since surgery. Reports passing flatus. Denies fever/chills, diaphoresis, N/V/, HOUSE, vision changes, neck pain, CP, orthopnea, cough, abdominal pain, paresthesias, extremity edema, rashes, urinary symptoms. Review of Systems Review of Systems: All systems reviewed & are unremarkable except as noted in HPI & below Physical Exam Physical Exam: General: no acute distress, obese Head: normocephalic, atraumatic Eyes: PERRL, EOM's intact, conjunctiva non-injected, anicteric ENT: normal inspection external ears, nose, mucous membranes moist Neck: supple, trachea midline Lungs: no respiratory distress, still on 2L NC with R: 18, diminished at bases CV: irregularly irregular, Rate 110, systolic murmur, trace pretibial edema Abd: normal BS, soft, non-tender Ext: no cyanosis, no calf tenderness; Right knee with surgical dressing in place without discharge, bilateral pedal pushes and pulls intact, distal pulses intact, sensation to light touch intact Neuro: A&O x 3, no focal deficits noted, normal affect Skin: warm, dry Results & Data Vital Signs (Past 12 Hours) Vital Signs Temp Pulse Pulse Pulse Resp BP BP 03/06/19 07:30 108 H 03/06/19 06:55 36.9 C 102 H 18 110/72 03/06/19 04:08 37.2 C 108 H 24 99/63 L 03/06/19 01:39 138 H 110/70 03/06/19 00:48 37.2 C 03/06/19 00:31 118 H 03/05/19 22:57 37.9 C H 118 H 20 110/70 Pulse Ox 03/06/19 07:30 03/06/19 06:55 95 03/06/19 04:08 95 03/06/19 01:39 03/06/19 00:48 03/06/19 00:31 03/05/19 22:57 93 Laboratory Results Short CBC 03/06/19 Range/Units 06:30 WBC 10.38 (4.8-10.8) K/uL Hgb 10.4 L (12.0-16.0) g/dL Hct 31.2 L (37-47) % Plt Count 159 (130-400) K/uL BMP 03/06/19 06:30 Sodium 135 L Potassium 3.8 Chloride 101 Carbon Dioxide 28 BUN 20 H Creatinine 1.26 H Glucose 100 H Calcium 8.1 L Diagnostic Findings CXR: IMPRESSION: Pulmonary vascular congestion, improved since prior exam.
[2019-03-06] MEDS: ORTHO WARFARIN NOMOGRAM SCH (15:38)
[2019-03-06] MEDS ORDERED: WARFARIN SOD 5 MG TAB PO ONE (16:00)
--- NOTE | 2019-03-06 19:05 | Cardiology Consultation ---
Date of Consultation March 06, 2019 Assessment & Plan (1) Status post right knee replacement: Continue physical therapy as tolerated. Continue Coumadin loading for stroke prophylaxis and DVT prophylaxis. (2) Paroxysmal atrial fibrillation: Patient has a history of paroxysmal atrial fibrillation. In April 2018 she underwent a 7-day outpatient surveillance system monitor. The predominant rhythm was sinus rhythm at that time with an average rate of 66 bpm. She did have paroxysmal atrial fibrillation however within A. fib burden of 13% and the average ventricular rate when in atrial fibrillation was 107 bpm. Her atrial fibrillation burden is unknown at this time, but she was in atrial fibrillation at the time of her preoperative visit a month ago, and she has been in persistent atrial fibrillation since she presented for elective knee surgery. Based on the fact that her primary care provider had to increase her metoprolol in mid January (after the cardiology) I believe she may have been in atrial fibrillation for the last few months. This is not surprising given her mild mitral stenosis and moderate left atrial enlargement. Recommend ongoing metoprolol therapy. This can be increased as her blood pressure allows. Further considerations in the future include adding perhaps low-dose digoxin 0.125 mg 3 days/week, with caution given her moderate CKD. Her outpatient cardiology note described transitioning her to Eliquis after recovering from surgery. Given the development of mitral stenosis, ongoing anticoagulation with Coumadin is recommended. Patient received a dose of furosemide yesterday for mild postoperative volume overload. Her volume status appears to be improved. Proceed without further diuretic therapy for now and reassess volume status clinically. (3) Mitral stenosis: Continue anticoagulation with Coumadin without bridge therapy given her mild postoperative anemia. History of Present Illness Attending Physician: Dedrick Mcarthur MD History of Present Illness Maame Ruiz is an 78 year old female seen in cardiology consultation per the request of Deyanira Hall PA-C of the [facility] service for the evaluation of atrial fibrillaiton. The pt's primary preform machine operator is Dr Ziegler of our practice whom the pt had most recently seen as an outpatient on 01/29/2019. At that time she described stable cardiac signs and symptoms. Her preoperative EKG performed the day however did reveal the presence of atrial fibrillation with mildly elevated ventricular rate in the range of 110 bpm. Compared to a prior tracing performed in April 2018 atrial fibrillation had replaced sinus rhythm and the rate had increased by 51 bpm. In follow-up of this, the patient's metoprolol dose of 25 mg 3 times per day was increased to 37.5 mg 3 times per day in mid January. A preoperative echocardiogram was performed on 02/24/2019 revealing moderate concentric left ventricular hypertrophy, preserved LVEF of 60-64%. The left atrium was noted to be moderately enlarged. Moderate mitral annular calcification was noted with mild mitral stenosis and moderate tricuspid regurgitation. There is no evidence of pulmonary hypertension by Doppler criteria. The patient presented for her elective right total knee replacement on 03/04/2019 was in atrial fibrillation. Per the anesthesia operative record atrial fibrillation in the high 90 to low 100 bpm range was noted throughout the surgery. Recovering on the surgical floor, the patient is known to have atrial fibrillation with rates as high as the 120 bpm range prompting transfer to telemetry. Her metoprolol dose has since been increased to 50 mg 3 times daily, and her ventricular rates are improved currently in the 90 to 99 bpm range. The patient has no subjective recognition that she is in atrial fibrillation. Allergies Allergy/AdvReac Type Severity Reaction Status Date / Time codeine Allergy Unknown NAUSEA AND Verified 03/04/19 08:49 VOMITING oxycodone AdvReac Mild HEADACHE, Verified 03/04/19 08:49 VOMIT Home Medications Home Medications Medication Instructions Recorded Confirmed Type alendronate 70 mg PO WK 01/20/19 03/04/19 History atorvastatin 40 mg PO QPM 01/20/19 03/04/19 History lisinopril 2.5 mg PO QAM 01/20/19 03/04/19 History loratadine 10 mg PO QAM 01/20/19 03/04/19 History multivitamin 1 tab PO QAM 01/20/19 03/04/19 History tramadol 50 mg PO Q6H PRN 01/20/19 03/04/19 History warfarin 4 mg PO QPM 01/20/19 03/04/19 History Centrum Silver Women 1 tab PO QAM 01/30/19 03/04/19 History cholecalciferol (vitamin D3) 2,000 unit PO QAM 01/30/19 03/04/19 History [Vitamin D3] gabapentin 200 mg PO BID 01/30/19 03/04/19 History metoprolol tartrate 37.5 mg PO TID 02/11/19 03/04/19 History Patient History Medical History Paroxysmal atrial fibrillation (Chronic) CKD (chronic kidney disease), stage III (Chronic) Hyperlipidemia (Chronic) Hypertension (Chronic) Osteoarthritis (Chronic) Carotid artery disease (Chronic) S/P LEFT CEA (2015) Osteoporosis (Chronic) Spinal stenosis (Chronic) Surgical History History of left-sided carotid endarterectomy (Chronic) 2014 History of appendectomy (Chronic) History of cataract surgery (Chronic) History of cholecystectomy (Chronic) History of tonsillectomy (Chronic) History of tooth extraction (Chronic) History of total abdominal hysterectomy and bilateral salpingo-oophorectomy (Chronic) Family History Family/Other Pancreatic cancer Other Cancer Stroke Social History Preferred Language: Belarusian Communication Ability: Effective Beliefs That Will Affect Care: None Current Living Situation: Alone Current Living Situation Comment: LIVES IN AN APARTMENT - SINGLE STORY Other Information That Helps Us Care for You: Yes (HAS LIFE ALERT) Feels Safe at Home: Yes Safety Concerns: Feels Safe At This Time Smoking Status: Former smoker Do You Dip or Chew Tobacco: No Smoking End Date: QUIT 20 YEARS AGO Second Hand Exposure: No Hx Alcohol Use: Yes Alcohol type: wine Alcohol Intake Frequency: Weekly Hx Substance Use: No Review of Systems Review of Systems: All systems reviewed & are unremarkable except as noted in HPI & below Physical Exam Physical Exam: Temp Pulse Resp BP Pulse Ox 36.9 C 106 H 19 98/67 L 95 03/06/19 15:23 03/06/19 16:00 03/06/19 15:23 03/06/19 15:23 03/06/19 15:23 Constitutional: WD/WN, vitals as above Respiratory: normal respiratory effort, lungs clear to auscultation Cardiovascular: Rate/Rhythm: + irregularly irregular Heart Sounds: + murmur (1/6 diastolic murmur) Vessels: no JVD Extremities: no edema Gastrointestinal (Abdomen): normal bowel sounds, soft, nontender, no hepatosplenomegaly Neurologic: PERRL, EOMI, accommodation nl, no face palsy, no dysarthria Results & Data Vital Signs (Past 12 Hours) Vital Signs Temp Pulse Pulse Pulse Resp BP BP 03/06/19 16:00 106 H 03/06/19 15:23 36.9 C 107 H 19 98/67 L 03/06/19 13:47 109 H 18 102/65 03/06/19 11:34 03/06/19 11:28 36.8 C 97 H 17 112/77 03/06/19 07:30 108 H Pulse Ox 03/06/19 16:00 03/06/19 15:23 95 03/06/19 13:47 92 03/06/19 11:34 78 L 03/06/19 11:28 92 03/06/19 07:30 Laboratory Results Coagulation 03/06/19 Range/Units 08:24 PT 13.5 H (9.0-12.0) Seconds CBC 03/06/19 Range/Units 06:30 WBC 10.38 (4.8-10.8) K/uL RBC 3.20 L (4.2-5.4) M/uL Hgb 10.4 L (12.0-16.0) g/dL Hct 31.2 L (37-47) % Plt Count 159 (130-400) K/uL Comprehensive Metabolic Panel 03/06/19 Range/Units 06:30 Sodium 135 L (136-145) mmol/L Potassium 3.8 (3.5-5.1) mmol/L Chloride 101 (98-107) mmol/L Carbon Dioxide 28 (21-32) mmol/L BUN 20 H (7-18) mg/dl Creatinine 1.26 H (0.6-1.2) mg/dl Glucose 100 H (70-99) mg/dl Calcium 8.1 L (8.5-10.1) mg/dl Intake and Output 03/06/19 03/06/19 03/06/19 06:59 14:59 22:59 Intake Total 75 / 775 595 / 595 Output Total 250 / 250 Balance 75 / -25 345 / 345 Intake: Oral 75 / 775 595 / 595 Output: Urine 250 / 250 Other: # Unmeasured Voids 1 Weight 94.9 kg INR today 03/06/2019 at 1.3 Diagnostic Findings EKG performed today 03/06/2019 revealed atrial fibrillation at 94 bpm without repolarization changes
[2019-03-06] MEDS: ATORVASTATIN 40 MG TAB PO SCH (20:28)
[2019-03-06] MEDS: SENNA 8.6 MG TAB PO SCH (20:31)
[2019-03-07] MEDS: OXYCODONE HCL IR 5 MG TAB (IMMEDIATE RELEASE) PO PRN ×3 (03:55→20:47)
[2019-03-07] MEDS: ONDANSETRON INJ 2 MG/ML 2 ML VIAL IV PRN (03:59)
[2019-03-07 06:16] LABS: Hematocrit (blood only) 30.9 % (37-47); Mean Corpuscular Hemoglobin 30.9 pg (25-34); Mean Corpuscular Hgb Conc 32.4 g/dL (32-36); Mean Corpuscular Volume 95.4 fL (80-100); Mean Platelet Volume 9.6 fL (7.4-10.4); Platelet Count 157 K/uL (130-400); RDW Coefficient of Variation 15.1 % (11.5-14.5); Red Blood Count 3.24 M/uL (4.2-5.4); White Blood Count 9.55 K/uL (4.8-10.8)
[2019-03-07 06:28] LABS: INR 1.5 (0.9-1.1); Prothrombin Time 15.3 Seconds (9.0-12.0)
[2019-03-07 06:54] LABS: BUN Creatinine Ratio 17.5 (10-20); Calcium 8.4 mg/dl (8.5-10.1); Creatinine Clr Calc Pharmacy 45.5 ml/min; Est GFR (African American) 57.4; Est GFR (Non-African American) 49.6; Potassium 3.9 mmol/L (3.5-5.1)
[2019-03-07] MEDS: FERROUS GLUCONATE 324 MG TAB PO SCH ×2 (07:46→16:44)
[2019-03-07] MEDS: GABAPENTIN 100 MG CAP PO SCH ×2 (07:46→20:46)
[2019-03-07] MEDS: LORATADINE 10 MG TAB PO SCH (07:47)
[2019-03-07] MEDS: CHOLECALCIFEROL 1,000 UNITS TAB PO SCH (07:47)
[2019-03-07] MEDS: DOCUSATE SODIUM 100 MG CAP PO SCH ×2 (07:47→20:46)
[2019-03-07] MEDS: MULTIVITAMIN TAB PO SCH (07:47)
[2019-03-07] MEDS: METOPROLOL TARTRATE 50 MG TAB PO SCH ×3 (07:48→20:47)
[2019-03-07] MEDS: ASCORBIC ACID 500 MG TAB PO SCH ×2 (08:25→16:44)
--- NOTE | 2019-03-07 09:52 | Cardiology Progress Note ---
Date of Service March 07, 2019 Assessment & Plan (1) Status post right knee replacement: Physical therapy as tolerated. Continue Coumadin loading for stroke prophylaxis and DVT prophylaxis. As per Orthopedics. (2) Paroxysmal atrial fibrillation: Know past asymptomatic paroxysmal atrial fibrillation. Patient appears to have asymptomatic persistent atrial fibrillation, currently with a rapid ventricular response. Discontinue lisinopril secondary to hypotension, to allow for titration of metoprolol (Metoprolol has already been increased by the hospitalist this morning) If unable to tolerate metoprolol secondary to hypotension would utilize low- dose digoxin Coumadin is the anticoagulant of choice in this patient (3) Mitral stenosis: Continue anticoagulation with Coumadin without bridge therapy given her mild postoperative anemia. (4) Hypotension: Discontinue Lisinopril Follow (5) Pulmonary vascular congestion: Portable chest x-ray requested, likely requiring low dose furosemide again today Supervising Physician Co-Signing Physician Notes Patient seen and examined at the bedside. Denies chest pain or unusual shortness of breath. Unaware of her atrial fibrillation. Heart rate ranging from 120 to 130 bpm. Coumadin restarted. INR 1.5 today. PE: VSS. Gen: NAD, AAOx3. Heart: Irregular, tachycardic, normal S1 and S2. No murmur appreciated. Lungs: Clear bilateral, no rales, rhonchi, wheeze. Extremities: No edema per A/P: Agree with PA-C history, physical exam, assessment and plan. Continue Coumadin daily for goal INR of 2.0-3.0. Metoprolol increased today. Continue to monitor telemetry. Consider addition of digoxin to improve heart rate control if necessary. Will continue to follow during hospitalization. Ej Orozco DO, [facility] Subjective Patient seen and examined. Chart, medications, telemetry reviewed. Daughter at bedside. Complaints voiced include right knee discomfort and dizziness with positional change. Cough noted on questioning. No chest pain. No palpitations. No new or unusual shortness of breath. No orthopnea or PND. Mild edema noted over the last two weeks. Continuous telemetry monitoring reveals atrial fibrillation ranging from 100 to 170 bpm with activity. Occasional PVCs. No significant bradycardia or pauses. Physical Exam Physical Exam: General: A&Ox3. NAD. Somewhat lethargic. HEENT: Normocephalic. Atraumatic. PER. Conjunctiva pink, sclera clear. No carotid bruits. No JVD. Heart: Irregularly irregular around 100 bpm. No murmur appreciated. Lungs: Faint rales at the right base. Abdomen: +BS. Soft. Nontender. No masses or organomegaly. Extremities: No significant edema. No cyanosis. No clubbing. Limited neurological examination is without focal deficits. Pulses: radial=2/4, posterior tibial=2/4. Results & Data Vital Signs (Past 12 Hours) Vital Signs Temp Pulse Pulse Pulse Resp BP Pulse Ox 03/07/19 08:00 106 H 03/07/19 07:04 37.0 C 130 H 19 93/67 L 95 03/07/19 03:40 37.0 C 95 H 14 125/82 93 03/06/19 23:02 37.4 C 110 H 18 110/64 92 Laboratory Results - last 24 hr 03/07/19 03/07/19 03/07/19 05:50 05:50 05:50 WBC 9.55 RBC 3.24 L Hgb 10.0 L Hct 30.9 L MCV 95.4 MCH 30.9 MCHC 32.4 RDW Std Deviation 53.0 H RDW Coeff of Jorge 15.1 H Plt Count 157 MPV 9.6 PT 15.3 H INR 1.5 H Sodium 132 L Potassium 3.9 Chloride 98 Carbon Dioxide 29 Anion Gap 5.0 BUN 19 H Creatinine 1.06 Est Cr Clr Drug Dosing 45.5 Est GFR ( Amer) 57.4 Est GFR (Non-Af Amer) 49.6 BUN/Creatinine Ratio 17.5 Glucose 115 H Calcium 8.4 L
--- NOTE | 2019-03-07 10:37 | Orthopedic Progress Note ---
Date of Service March 07, 2019 Assessment & Plan (1) Status post right knee replacement: POD # 3 s/p Right TKA, with A. fib. The patient is improving, and her vitals have stabilized. Continue regular diet. Continue pain control. Ice to right knee for pain and swelling. Dressing changed 03/06/2019, leave in place until 2 week follow-up. WBAT RLE. Cont PT/OT while inpatient DVT Prophylaxis: TEDs on operative leg for 3 weeks minimum, Foot pumps while in hospital, Coumadin as she is on this for her A. fib, prior to admission. Appreciate medicine and Cardiology's input D/C planning--D/C will be based on medicine/Cardiology. Patient hoping to go to [facility] or [facility] (has discussed both options with case management). I, Dr. Mcarthur, saw and examined the patient and discussed the management with my PA. I reviewed my PAs note and agree with the documented findings and the plan of care I developed. Subjective Admits to feeling weak, and had some nausea when ambulating. Pt just finished with AM PT. Now sitting in bedside chair. C/o Minimal pain to right knee Denies any drainage from dressing, leg weakness or buckling. Denies palpitations, SOB, CP today. Denies fever/chills, diaphoresis, N/V/, HOUSE. Asymptomatic Atril fibrillation. Has discussed rehab placement with case management. Review of Systems Review of Systems: All systems reviewed & are unremarkable except as noted in HPI & below Physical Exam Physical Exam: Right Lower extremity: dressing clean, dry and intact. ROM from 0-90 passively. Minimally TTP around incision site. Mild edema. No erythema, ecchymosis or warmth appreciated. Calf soft and supple. Able to dorsi/plantar flex foot actively. Digital dexterity appropriate. Has some slight difficulty performing SLRT but is able to fire quad. Peripheral pulses are easily palpable. Cap refill < 2 seconds. Results & Data Vital Signs (Past 12 Hours) Vital Signs Temp Pulse Pulse Pulse Resp BP Pulse Ox 03/07/19 08:00 106 H 03/07/19 07:04 37.0 C 130 H 19 93/67 L 95 03/07/19 03:40 37.0 C 95 H 14 125/82 93 03/06/19 23:02 37.4 C 110 H 18 110/64 92 Laboratory Results 03/07/19 03/07/19 03/07/19 Range/Units 05:50 05:50 05:50 WBC 9.55 (4.8-10.8) K/uL RBC 3.24 L (4.2-5.4) M/uL Hgb 10.0 L (12.0-16.0) g/dL Hct 30.9 L (37-47) % MCV 95.4 (80-100) fL MCH 30.9 (25-34) pg MCHC 32.4 (32-36) g/dL RDW Std Deviation 53.0 H (36.4-46.3) fL RDW Coeff of Jorge 15.1 H (11.5-14.5) % Plt Count 157 (130-400) K/uL MPV 9.6 (7.4-10.4) fL PT 15.3 H (9.0-12.0) Seconds INR 1.5 H (0.9-1.1) Sodium 132 L (136-145) mmol/L Potassium 3.9 (3.5-5.1) mmol/L Chloride 98 (98-107) mmol/L Carbon Dioxide 29 (21-32) mmol/L Anion Gap 5.0 (3-11) BUN 19 H (7-18) mg/dl Creatinine 1.06 (0.6-1.2) mg/dl Est Cr Clr Drug Dosing 45.5 ml/min Est GFR ( Amer) 57.4 Est GFR (Non-Af Amer) 49.6 BUN/Creatinine Ratio 17.5 (10-20) Glucose 115 H (70-99) mg/dl Calcium 8.4 L (8.5-10.1) mg/dl
--- NOTE | 2019-03-07 11:40 | XRay Report ---
XR chest 1V portable CLINICAL HISTORY: Cough. COMPARISON STUDY: Chest radiograph March 06, 2019 FINDINGS: There is no pneumothorax or pleural effusion. Cardiomegaly is unchanged. Pulmonary vascular congestion has improved. There is no consolidation to suggest pneumonia. Mitral annular calcificatio n is noted. IMPRESSION: No acute findings. Improvement in pulmonary vascular congestion. Electronically signed by: Christopher Hurtado M.D. 03/07/2019 11:39 AM
[2019-03-07] MEDS: ORTHO WARFARIN NOMOGRAM SCH (13:18)
[2019-03-07] MEDS ORDERED: WARFARIN SOD 4 MG TAB PO SCH (16:00)
--- NOTE | 2019-03-07 19:05 | Hospitalist Progress Note ---
Date of Service March 07, 2019 Assessment & Plan (1) Status post right knee replacement: POD#3 s/p R TKA by Dr. Mcarthur Developed A-fib RVR postop pain management, Activity, wound care as per ortho Continue incentive spirometry Monitor CBC (2) Paroxysmal atrial fibrillation: Developed A Fib with RVR with HR in 140s overnight on POD#0 and was transferred to telemetry Asymptomatic Metoprolol dose increased to 50 mg 3 times daily Volume status improved with minimal diuretics On Coumadin for anticoagulation INR 1.5 Appreciate cardiology input Lisinopril discontinued as blood pressure relatively low May need to add low dose digoxin if continues to be tachycardic (3) CHF (congestive heart failure): Management as above (4) Hypertension: Stable Continue Lopressor lisinopril discontinued (5) CKD (chronic kidney disease), stage III: Creatinine at baseline Monitor renal function (6) Hyperlipidemia: Continue statin DVT Px: Coumadin Disposition As per primary team Subjective Patient is seen and examined at bedside Complains of right knee pain after having physical therapy this morning Denies any chest pain, shortness of breath, dizziness, nausea Heart rate is mildly elevated INR slowly improving Review of Systems Review of Systems: All systems reviewed & are unremarkable except as noted in HPI & below Physical Exam Physical Exam: General: Obese, no apparent distress Head: normocephalic, atraumatic Eyes: PERRL, EOMI Neck: supple, trachea midline Lungs: Decreased breath sounds at bases, CTA CV: irregularly irregular, +Tachycardia, systolic murmur, trace pretibial edema Abd: normal BS, soft, non-tender Ext: no cyanosis, no calf tenderness; Right knee with surgical dressing in place without discharge, bilateral pedal pushes and pulls intact, distal pulses intact, sensation to light touch intact Neuro: A&O x 3, no focal deficits noted, normal affect Skin: warm, dry Results & Data Vital Signs (Past 12 Hours) Vital Signs Temp Pulse Pulse Resp BP Pulse Ox 03/07/19 15:34 36.7 C 110 H 18 122/80 94 03/07/19 10:55 37.3 C 102 H 19 111/74 95 03/07/19 08:00 106 H 03/07/19 07:04 37.0 C 130 H 19 93/67 L 95 Laboratory Results Short CBC 03/07/19 Range/Units 05:50 WBC 9.55 (4.8-10.8) K/uL Hgb 10.0 L (12.0-16.0) g/dL Hct 30.9 L (37-47) % Plt Count 157 (130-400) K/uL [facility] 03/07/19 05:50 Sodium 132 L Potassium 3.9 Chloride 98 Carbon Dioxide 29 BUN 19 H Creatinine 1.06 Glucose 115 H Calcium 8.4 L
[2019-03-07] MEDS: ATORVASTATIN 40 MG TAB PO SCH (20:47)
[2019-03-07] MEDS: SENNA 8.6 MG TAB PO SCH (20:47)
[2019-03-08 06:58] LABS: INR 1.7 (0.9-1.1); Prothrombin Time 17.2 Seconds (9.0-12.0)
[2019-03-08 07:19] LABS: Calcium 8.2 mg/dl (8.5-10.1); Creatinine Clr Calc Pharmacy 45.5 ml/min; Est GFR (African American) 57.4; Est GFR (Non-African American) 49.6
--- NOTE | 2019-03-08 07:33 | Orthopedic Progress Note ---
Date of Service March 08, 2019 Assessment & Plan (1) Status post right knee replacement: POD # 4 s/p Right TKA, Continues with A. fib. Remains in telemetry. Continue regular diet. Continue pain control. Ice to right knee for pain and swelling. Dressing changed 03/06/2019, leave in place until 2 week follow-up. WBAT RLE. Cont PT/OT. DVT Prophylaxis: TEDs on operative leg for 3 weeks minimum, Foot pumps while in hospital, Coumadin as she is on this for her A. fib, prior to admission. Appreciate medicine and Cardiology's input. D/C planning--D/C will be based on medicine/Cardiology. Patient hoping to go to [facility] or [facility] (has discussed both options with case management). Subjective Patient is doing well. Biggest difficulty is standing up. Review of Systems Review of Systems: All systems reviewed & are unremarkable except as noted in HPI & below Denies chest pain or shortness of breath. Physical Exam Physical Exam: Laying comfortably in bed. RLE: Neurovascularly intact. Dressing is clean, dry, intact. Calf is soft and nontender. Results & Data Vital Signs (Past 12 Hours) Vital Signs Temp Pulse Pulse Pulse Pulse Resp BP 03/08/19 06:57 37.2 C 124 H 18 128/66 03/08/19 04:01 03/08/19 04:00 37.4 C 127 H 22 113/73 03/07/19 23:55 102 H 03/07/19 23:18 37.7 C H 107 H 22 100/66 Pulse Ox 03/08/19 06:57 93 03/08/19 04:01 95 03/08/19 04:00 85 L 03/07/19 23:55 03/07/19 23:18 98
[2019-03-08] MEDS: FERROUS GLUCONATE 324 MG TAB PO SCH ×2 (08:02→16:56)
[2019-03-08] MEDS: LORATADINE 10 MG TAB PO SCH (08:02)
[2019-03-08] MEDS: DOCUSATE SODIUM 100 MG CAP PO SCH ×2 (08:03→20:58)
[2019-03-08] MEDS: ASCORBIC ACID 500 MG TAB PO SCH ×2 (08:03→16:55)
[2019-03-08] MEDS: MULTIVITAMIN TAB PO SCH (08:03)
[2019-03-08] MEDS: METOPROLOL TARTRATE 50 MG TAB PO SCH ×3 (08:03→20:57)
[2019-03-08] MEDS: CHOLECALCIFEROL 1,000 UNITS TAB PO SCH (08:04)
[2019-03-08] MEDS: GABAPENTIN 100 MG CAP PO SCH ×2 (08:04→20:58)
[2019-03-08] MEDS: OXYCODONE HCL IR 5 MG TAB (IMMEDIATE RELEASE) PO PRN ×2 (08:12→13:35)
[2019-03-08] MEDS: ONDANSETRON INJ 2 MG/ML 2 ML VIAL IV PRN (08:12)
--- NOTE | 2019-03-08 12:25 | Cardiology Progress Note ---
Date of Service March 08, 2019 Assessment & Plan (1) Paroxysmal atrial fibrillation: Know past asymptomatic paroxysmal atrial fibrillation. Ventricular rate improved with titration of metoprolol 03/07/2019. Continue to monitor at this time. Continue daily Coumadin dosing for goal INR of 2.0-3.0. Subtherapeutic today at 1.7. Consider addition of low-dose digoxin in the future if necessary to improve heart rate control. (2) Status post right knee replacement: Physical therapy as tolerated. Continue Coumadin loading for stroke prophylaxis and DVT prophylaxis. (3) Mitral stenosis: Continue anticoagulation with Coumadin without bridge therapy given her mild postoperative anemia. (4) Hypotension: Lisinopril discontinued 03/07/2019. Blood pressure stable. Patient asymptomatic. Subjective Patient seen and examined at the bedside. Heart rate improved with titration of metoprolol. Average resting heart rate 100 to 110 bpm. Patient remains asymptomatic. Family present at bedside. Offer no additional concerns/complaints at this time. Review of Systems Review of Systems: All systems reviewed & are unremarkable except as noted in HPI & below Physical Exam Physical Exam: General: NAD, AAO x3, well nourished. HEENT: Normocephalic. Atraumatic. Conjunctiva pink, no scleral icterus. Neck: No carotid bruits, the carotid upstrokes are brisk. No JVD. No HJR Heart: Irregular rhythm, tachycardic, normal S-1 and S-2. No murmurs or rub appreciated. PMI is not displaced. No RV heave. Lungs: Clear bilateral without rales , rhonchi, or wheeze. Abdomen: Normal bowel sounds. Soft. Nontender. No masses or organomegaly. No abdominal bruits. Extremities: No clubbing, cyanosis, or edema. Pulses: radial=2/4, Dorsalis pedis =2/4, posterior tibial=2/4. Neuro: Cranial nerves grossly intact. No focal motor deficit. Results & Data Vital Signs (Past 12 Hours) Vital Signs Temp Pulse Pulse Pulse Resp BP Pulse Ox 03/08/19 10:57 107 H 03/08/19 10:40 37.1 C 112 H 19 110/77 95 03/08/19 06:57 37.2 C 124 H 18 128/66 93 03/08/19 04:01 95 03/08/19 04:00 37.4 C 127 H 22 113/73 85 L Laboratory Results Laboratory Results - last 24 hr 03/08/19 03/08/19 06:02 06:02 PT 17.2 H INR 1.7 H Sodium 134 L Potassium 4.0 Chloride 99 Carbon Dioxide 29 Anion Gap 6.0 BUN 20 H Creatinine 1.06 Est Cr Clr Drug Dosing 45.5 Est GFR ( Amer) 57.4 Est GFR (Non-Af Amer) 49.6 BUN/Creatinine Ratio 19.0 Glucose 100 H Calcium 8.2 L
[2019-03-08] MEDS: ORTHO WARFARIN NOMOGRAM SCH (14:24)
--- NOTE | 2019-03-08 15:11 | Hospitalist Progress Note ---
Date of Service March 08, 2019 Assessment & Plan (1) Status post right knee replacement: POD#4 s/p R TKA by Dr. Mcarthur Developed A-fib RVR postop pain management, Activity, wound care as per ortho Continue incentive spirometry Monitor CBC (2) Paroxysmal atrial fibrillation: Developed A Fib with RVR with HR in 140s overnight on POD#0 and was transferred to telemetry Asymptomatic Metoprolol dose increased to 50 mg 3 times daily Heart rate is fairly controlled Volume status improved with minimal diuretics On Coumadin for anticoagulation INR 1.7 Appreciate cardiology input Lisinopril discontinued as blood pressure relatively low May need to add low dose digoxin if continues to be tachycardic (3) CHF (congestive heart failure): Management as above (4) Hypertension: Stable Continue Lopressor lisinopril discontinued (5) CKD (chronic kidney disease), stage III: Creatinine at baseline Monitor renal function (6) Hyperlipidemia: Continue statin DVT Px: Coumadin Disposition As per primary team Subjective Patient is seen and examined at bedside States knee pain is better Denies any chest pain, shortness of breath, dizziness, nausea Heart rate is fairly controlled INR slowly improving Review of Systems Review of Systems: All systems reviewed & are unremarkable except as noted in HPI & below Physical Exam Physical Exam: General: Obese, no apparent distress Head: normocephalic, atraumatic Eyes: PERRL, EOMI Neck: supple, trachea midline Lungs: Decreased breath sounds at bases, CTA CV: irregularly irregular, +Tachycardia, systolic murmur, trace pretibial edema Abd: normal BS, soft, non-tender Ext: no cyanosis, no calf tenderness; Right knee with surgical dressing Neuro: A&O x 3, no focal deficits noted, normal affect Skin: warm, dry Results & Data Vital Signs (Past 12 Hours) Vital Signs Temp Pulse Pulse Pulse Resp BP Pulse Ox 03/08/19 10:57 107 H 03/08/19 10:40 37.1 C 112 H 19 110/77 95 03/08/19 06:57 37.2 C 124 H 18 128/66 93 03/08/19 04:01 95 03/08/19 04:00 37.4 C 127 H 22 113/73 85 L Laboratory Results BMP 03/08/19 06:02 Sodium 134 L Potassium 4.0 Chloride 99 Carbon Dioxide 29 BUN 20 H Creatinine 1.06 Glucose 100 H Calcium 8.2 L
[2019-03-08] MEDS ORDERED: WARFARIN SOD 3 MG TAB PO SCH (16:00)
[2019-03-08] MEDS ORDERED: POLYETHYLENE (MIRALAX) 17 GM PACK PO PRN (19:01)
[2019-03-08] MEDS: SENNA 8.6 MG TAB PO SCH (20:57)
[2019-03-08] MEDS: ATORVASTATIN 40 MG TAB PO SCH (20:58)
[2019-03-09] MEDS ORDERED: ALENDRONATE SODIUM 70 MG TAB PO SCH (06:30)
[2019-03-09 06:47] LABS: INR 1.8 (0.9-1.1); Prothrombin Time 17.9 Seconds (9.0-12.0)
[2019-03-09 07:13] LABS: BUN Creatinine Ratio 18.8 (10-20); Calcium 8.3 mg/dl (8.5-10.1); Creatinine Clr Calc Pharmacy 50.4 ml/min; Est GFR (African American) 64.7; Est GFR (Non-African American) 55.9
[2019-03-09] MEDS: GABAPENTIN 100 MG CAP PO SCH ×2 (08:31→21:06)
[2019-03-09] MEDS: LORATADINE 10 MG TAB PO SCH (08:32)
[2019-03-09] MEDS: METOPROLOL TARTRATE 50 MG TAB PO SCH ×3 (08:32→21:06)
[2019-03-09] MEDS: MULTIVITAMIN TAB PO SCH (08:32)
--- NOTE | 2019-03-09 08:34 | Orthopedic Progress Note ---
Date of Service March 09, 2019 Assessment & Plan (1) Status post right knee replacement: POD # 5 s/p Right TKA, Continues with A. fib HR 90-140's per nurse. Remains in telemetry, will defer to Cardiology and Hospitalist service on timing of transfer to regular med/surg floor. Continue regular diet. Continue pain control. Ice to right knee for pain and swelling. Dressing changed 03/06/2019, leave in place until 2 week follow-up. WBAT RLE. Cont PT/OT. DVT Prophylaxis: ASHLIEs on operative leg for 3 weeks minimum, Foot pumps while in hospital, Coumadin as she is on this for her A. fib, prior to admission. Appreciate medicine and Cardiology's input. D/C planning--D/C will be based on medicine/Cardiology. Patient hoping to go to [facility] or [facility] (has discussed both options with case management). Subjective Knee is feeling better, not as difficult to get standing. Notes some dizziness with activities. Only using Tylenol for pain. Denies CP or SOB. Review of Systems Review of Systems: All systems reviewed & are unremarkable except as noted in HPI & below Physical Exam Physical Exam: RLE: Neurovascully intact. Dressing Clean, dry, intact. Calf soft and non-tender. Results & Data Vital Signs (Past 12 Hours) Vital Signs Temp Pulse Pulse Pulse Resp BP Pulse Ox 03/09/19 07:22 37.1 C 120 H 18 110/76 94 03/09/19 05:01 95 H 03/09/19 03:06 37 C 119 H 20 119/85 94 03/09/19 01:54 99 H 03/08/19 23:33 103 H 03/08/19 23:04 37.5 C 103 H 18 121/75 96 03/08/19 22:04 109 H Pulse Ox 03/09/19 07:22 03/09/19 05:01 94 03/09/19 03:06 03/09/19 01:54 94 03/08/19 23:33 94 03/08/19 23:04 03/08/19 22:04 94 Laboratory Results 03/09/19 03/09/19 Range/Units 06:23 06:23 PT 17.9 H (9.0-12.0) Seconds INR 1.8 H (0.9-1.1) Sodium 134 L (136-145) mmol/L Potassium 4.0 (3.5-5.1) mmol/L Chloride 100 (98-107) mmol/L Carbon Dioxide 30 (21-32) mmol/L Anion Gap 4.0 (3-11) BUN 18 (7-18) mg/dl Creatinine 0.96 (0.6-1.2) mg/dl Est Cr Clr Drug Dosing 50.4 ml/min Est GFR ( Amer) 64.7 Est GFR (Non-Af Amer) 55.9 BUN/Creatinine Ratio 18.8 (10-20) Glucose 104 H (70-99) mg/dl Calcium 8.3 L (8.5-10.1) mg/dl
[2019-03-09] MEDS: ACETAMINOPHEN 325 MG TAB PO PRN ×2 (09:01→16:20)
[2019-03-09] MEDS ORDERED: DIGOXIN 0.25 MG TAB PO ONE ×2 (10:44→18:00)
[2019-03-09] MEDS: ASCORBIC ACID 500 MG TAB PO SCH ×2 (10:44→16:22)
[2019-03-09] MEDS: CHOLECALCIFEROL 1,000 UNITS TAB PO SCH (10:45)
[2019-03-09] MEDS: DOCUSATE SODIUM 100 MG CAP PO SCH ×2 (10:45→21:06)
[2019-03-09] MEDS: FERROUS GLUCONATE 324 MG TAB PO SCH ×2 (10:45→16:22)
--- NOTE | 2019-03-09 12:34 | Cardiology Progress Note ---
Date of Service March 09, 2019 Assessment & Plan (1) Paroxysmal atrial fibrillation: Heart rate elevated over the past 12 hours. Recommend addition of oral digoxin. Renal function within normal limits today. Will give 250 mcg x 1 now with additional 250 mcg and 6 hours. Continue to follow telemetry. Patient weight trending upward with positive fluid balance. Will give additional 20 mg IV Lasix today. INR remains subtherapeutic, 1.8. Dose Coumadin daily. We will continue to follow closely. (2) Status post right knee replacement: Physical therapy as tolerated. Continue Coumadin loading for stroke prophylaxis and DVT prophylaxis. (3) Mitral stenosis: Continue anticoagulation with Coumadin without bridge therapy given her mild postoperative anemia. (4) Hypotension: Lisinopril discontinued 03/07/2019. Blood pressure stable. Patient asymptomatic. Subjective Patient seen and examined at the bedside. No shortness of breath with exertion and physical therapy. Denies palpitations at rest. Family present at bedside. Appetite improving. Pain controlled. Weight is trending upward. Fluid balance is positive. Patient offers no other concerns/complaints at this time. Review of Systems Review of Systems: All systems reviewed & are unremarkable except as noted in HPI & below Physical Exam Physical Exam: General: NAD, AAO x3, well nourished. HEENT: Normocephalic. Atraumatic. Conjunctiva pink, no scleral icterus. Neck: No carotid bruits, the carotid upstrokes are brisk. No JVD. No HJR Heart: Irregular rhythm, tach ycardic, normal S-1 and S-2. No murmurs or rub appreciated. PMI is not displaced. No RV heave. Lungs: Diminished breath sounds at the bases bilaterally. Scant crackles at the left base. Abdomen: Normal bowel sounds. Soft. Nontender. No masses or organomegaly. No abdominal bruits. Extremities: No clubbing, cyanosis, or edema. Pulses: radial=2/4, Dorsalis pedis =2/4, posterior tibial=2/4. Neuro: Cranial nerves grossly intact. No focal motor deficit. Results & Data Vital Signs (Past 12 Hours) Vital Signs Temp Pulse Pulse Pulse Pulse Resp BP 03/09/19 11:14 105 H 03/09/19 11:12 36.8 C 101 H 18 107/70 03/09/19 10:03 106 H 03/09/19 07:22 37.1 C 120 H 18 110/76 03/09/19 05:01 95 H 03/09/19 03:06 37 C 119 H 20 119/85 03/09/19 01:54 99 H Pulse Ox Pulse Ox 03/09/19 11:14 03/09/19 11:12 91 03/09/19 10:03 03/09/19 07:22 94 03/09/19 05:01 94 03/09/19 03:06 94 03/09/19 01:54 94
[2019-03-09] MEDS ORDERED: FUROSEMIDE 20 MG in SYRINGE 0 ML IV ONE (12:45)
[2019-03-09] MEDS: ORTHO WARFARIN NOMOGRAM SCH (14:43)
--- NOTE | 2019-03-09 15:43 | Hospitalist Progress Note ---
Date of Service March 09, 2019 Assessment & Plan (1) Status post right knee replacement: POD#5 s/p R TKA by Dr. Mcarthur Developed A-fib RVR postop pain management, Activity, wound care as per ortho Continue incentive spirometry Monitor CBC (2) Paroxysmal atrial fibrillation: Developed A Fib with RVR with HR in 140s overnight on POD#0 and was transferred to telemetry Asymptomatic Metoprolol dose increased to 50 mg 3 times daily Heart rate is fairly controlled Volume status improved with minimal diuretics On Coumadin for anticoagulation INR 1.8 Appreciate cardiology input Lisinopril discontinued as blood pressure relatively low Added digoxin today (3) CHF (congestive heart failure): Management as above Diuretics PRN Hypoxia: Check nocturnal pulse oximetry May need 2 step prior to discharge (4) Hypertension: Stable Continue Lopressor lisinopril discontinued (5) CKD (chronic kidney disease), stage III: Creatinine at baseline Monitor renal function (6) Hyperlipidemia: Continue statin DVT Px: Coumadin Disposition As per primary team Subjective Patient is seen and examined at bedside knee pain is controlled Nauseous this morning Denies any chest pain, shortness of breath, dizziness Added on digoxin for heart rate control INR slowly improving Also received Lasix to help with volume status Review of Systems Review of Systems: All systems reviewed & are unremarkable except as noted in HPI & below Physical Exam Physical Exam: General: Obese, no apparent distress Head: normocephalic, atraumatic Eyes: PERRL, EOMI Neck: supple, trachea midline Lungs: Decreased breath sounds at bases, CTA CV: irregularly irregular, +Tachycardia, systolic murmur, trace pretibial edema Abd: normal BS, soft, non-tender Ext: no cyanosis, no calf tenderness; Right knee with surgical dressing Neuro: A&O x 3, no focal deficits noted, normal affect Skin: warm, dry Results & Data Vital Signs (Past 12 Hours) Vital Signs Temp Pulse Pulse Pulse Pulse Resp BP 03/09/19 15:32 37.3 C 106 H 20 119/76 03/09/19 11:14 105 H 03/09/19 11:12 36.8 C 101 H 18 107/70 03/09/19 10:03 106 H 03/09/19 07:22 37.1 C 120 H 18 110/76 03/09/19 05:01 95 H Pulse Ox Pulse Ox 03/09/19 15:32 92 03/09/19 11:14 03/09/19 11:12 91 03/09/19 10:03 03/09/19 07:22 94 03/09/19 05:01 94 Laboratory Results [facility] 03/09/19 06:23 Sodium 134 L Potassium 4.0 Chloride 100 Carbon Dioxide 30 BUN 18 Creatinine 0.96 Glucose 104 H Calcium 8.3 L
[2019-03-09] MEDS ORDERED: WARFARIN SOD 3 MG TAB PO SCH (16:00)
[2019-03-09] MEDS: SENNA 8.6 MG TAB PO SCH (21:05)
[2019-03-09] MEDS: ATORVASTATIN 40 MG TAB PO SCH (21:07)
[2019-03-10] MEDS: ACETAMINOPHEN 325 MG TAB PO PRN ×2 (04:16→11:13)
[2019-03-10 07:38] LABS: INR 2.2 (0.9-1.1); Prothrombin Time 21.7 Seconds (9.0-12.0)
[2019-03-10] MEDS: DOCUSATE SODIUM 100 MG CAP PO SCH ×2 (07:40→20:56)
[2019-03-10] MEDS: METOPROLOL TARTRATE 50 MG TAB PO SCH ×3 (07:40→20:56)
[2019-03-10] MEDS: GABAPENTIN 100 MG CAP PO SCH ×2 (07:40→20:57)
[2019-03-10] MEDS: LORATADINE 10 MG TAB PO SCH (07:40)
[2019-03-10] MEDS: FERROUS GLUCONATE 324 MG TAB PO SCH ×2 (07:41→18:14)
[2019-03-10] MEDS: MULTIVITAMIN TAB PO SCH (07:41)
[2019-03-10] MEDS: ASCORBIC ACID 500 MG TAB PO SCH ×2 (07:41→18:15)
[2019-03-10] MEDS: CHOLECALCIFEROL 1,000 UNITS TAB PO SCH (07:41)
[2019-03-10 07:52] LABS: BUN Creatinine Ratio 17.7 (10-20); Calcium 8.8 mg/dl (8.5-10.1); Creatinine Clr Calc Pharmacy 46.8 ml/min; Est GFR (African American) 60.9; Est GFR (Non-African American) 52.5; Potassium 3.8 mmol/L (3.5-5.1)
--- NOTE | 2019-03-10 09:04 | Orthopedic Progress Note ---
Date of Service March 10, 2019 Assessment & Plan (1) Status post right knee replacement: POD # 6 s/p Right TKA, Continues with A. fib HR 130-140's. Remains in telemetry, will defer to Cardiology and Hospitalist service on timing of transfer to regular med/surg floor. Started Digoxin yesterday. Continue regular diet. Continue pain control. Ice to right knee for pain and swelling. Dressing changed 03/06/2019, leave in place until 2 week follow-up. WBAT RLE. Cont PT/OT. DVT Prophylaxis: ASHLIEs on operative leg for 3 weeks minimum, Foot pumps while in hospital, Coumadin as she is on this for her A. fib, prior to admission. INR is therapeutic. Appreciate medicine and Cardiology's input. D/C planning--D/C will be based on medicine/Cardiology. Stable from ortho standpoint. Patient hoping to go to [facility] or [facility] (has discussed both options with case management). Subjective Right knee pain overnight. Did not need O2 supplementation overnight. Review of Systems Review of Systems: Denies chest pain or shortness of breath. Nausea and Dizziness with standing. Physical Exam Physical Exam: RLE: Dressing clean, dry, intact. Calf soft & non-tender. Neurovascularly intact. Results & Data Vital Signs (Past 12 Hours) Vital Signs Temp Pulse Pulse Resp BP Pulse Ox Pulse Ox 03/10/19 07:00 37.1 C 123 H 19 118/79 92 03/10/19 05:20 94 H 90 03/10/19 04:07 36.9 C 115 H 19 120/73 90 03/10/19 01:45 109 H 89 L 03/10/19 00:09 37.2 C 97 H 20 112/73 92 03/09/19 23:01 107 H 88 L 03/09/19 21:13 110 H 90 Laboratory Results 03/10/19 03/10/19 Range/Units 07:07 07:07 PT 21.7 H (9.0-12.0) Seconds INR 2.2 H (0.9-1.1) Sodium 138 (136-145) mmol/L Potassium 3.8 (3.5-5.1) mmol/L Chloride 102 (98-107) mmol/L Carbon Dioxide 29 (21-32) mmol/L Anion Gap 8.0 (3-11) BUN 18 (7-18) mg/dl Creatinine 1.01 (0.6-1.2) mg/dl Est Cr Clr Drug Dosing 46.8 ml/min Est GFR ( Amer) 60.9 Est GFR (Non-Af Amer) 52.5 BUN/Creatinine Ratio 17.7 (10-20) Glucose 104 H (70-99) mg/dl Calcium 8.8 (8.5-10.1) mg/dl
[2019-03-10] MEDS ORDERED: DIGOXIN 0.25 MG TAB PO STA (10:31)
[2019-03-10] MEDS: ORTHO WARFARIN NOMOGRAM SCH (11:53)
--- NOTE | 2019-03-10 12:01 | Cardiology Progress Note ---
Date of Service March 10, 2019 Assessment & Plan (1) Paroxysmal atrial fibrillation: Heart rate improved this morning after oral digoxin and metoprolol. Continue metoprolol 50 mg 3 times daily and digoxin 250 mcg daily. INR therapeutic. Dose Coumadin daily for goal INR 2.0-3.0. Repeat x-ray today for assessment of previously noted pulmonary vascular congestion. (2) Status post right knee replacement: Physical therapy as tolerated. Continue Coumadin loading for stroke prophylaxis and DVT prophylaxis. (3) Mitral stenosis: (4) Hypotension: Lisinopril discontinued 03/07/2019 due to borderline resting hypotension. Subjective Patient seen and examined the bedside. Elevated heart rate noted this a.m. with ventricular rates up to 145 bpm. Notes intermittent nausea. Mild dyspnea with exertion reported. No chest discomfort or palpitations. Denies lightens, dizziness, syncope, near syncope. Received dose of IV Lasix yesterday with sub sequent weight loss. No edema today. Family present at bedside. Voiced concern regarding heart rate. Review of Systems Review of Systems: All systems reviewed & are unremarkable except as noted in HPI & below Physical Exam Physical Exam: General: NAD, AAO x3, well nourished. HEENT: Normocephalic. Atraumatic. Conjunctiva pink, no scleral icterus. Neck: No carotid bruits, the carotid upstrokes are brisk. No JVD. No HJR Heart: Irregular rhythm, tachycardic, normal S-1 and S-2. No murmurs or rub appreciated. PMI is not displaced. No RV heave. Lungs: Diminished breath sounds at the bases bilaterally. Scant crackles at the left base. Abdomen: Normal bowel sounds. Soft. Nontender. No masses or organomegaly. No abdominal bruits. Extremities: No clubbing, cyanosis, or edema. Pulses: radial=2/4, Dorsalis pedis =2/4, posterior tibial=2/4. Neuro: Cranial nerves grossly intact. No focal motor deficit. Results & Data Vital Signs (Past 12 Hours) Vital Signs Temp Pulse Pulse Pulse Resp BP Pulse Ox 03/10/19 11:41 88 L 03/10/19 11:13 112 H 03/10/19 11:11 37 C 112 H 18 142/86 H 93 03/10/19 07:00 37.1 C 123 H 19 118/79 92 03/10/19 05:20 94 H 03/10/19 04:07 36.9 C 115 H 19 120/73 90 03/10/19 01:45 109 H 03/10/19 00:09 37.2 C 97 H 20 112/73 92 Pulse Ox 03/10/19 11:41 03/10/19 11:13 03/10/19 11:11 03/10/19 07:00 03/10/19 05:20 90 03/10/19 04:07 03/10/19 01:45 89 L 03/10/19 00:09 Laboratory Results Laboratory Results - last 24 hr 03/10/19 03/10/19 07:07 07:07 PT 21.7 H INR 2.2 H Sodium 138 Potassium 3.8 Chloride 102 Carbon Dioxide 29 Anion Gap 8.0 BUN 18 Creatinine 1.01 Est Cr Clr Drug Dosing 46.8 Est GFR ( Amer) 60.9 Est GFR (Non-Af Amer) 52.5 BUN/Creatinine Ratio 17.7 Glucose 104 H Calcium 8.8
[2019-03-10] MEDS: TRAMADOL HCL 50 MG TABLET PO PRN ×2 (13:21→20:57)
--- NOTE | 2019-03-10 14:20 | Orthopedic Progress Note ---
Date of Service March 10, 2019 Assessment & Plan (1) Status post right knee replacement: POD # 6 s/p Right TKA, Continues with A. fib HR 130-140's. Remains in telemetry being followed by Cardiology and Hospitalist. Patient on metoprolol and digoxin. Continue regular diet. Continue pain control. Ice to right knee for pain and swelling. Dressing changed 03/06/2019, leave in place until 2 week follow-up. WBAT RLE. Cont PT/OT. DVT Prophylaxis: Mark on operative leg for 3 weeks minimum, Foot pumps while in hospital, Coumadin as she is on this for her A. fib, prior to admission. INR is therapeutic. D/C planning--D/C will be based on medicine/Cardiology. Stable from ortho standpoint. Patient hoping to go to [facility] or [facility] (has discussed both options with case management). Subjective Patient seen this PM. Cardiology saw patient earlier today. Stepdaughter and Physical Therapist in the room. Patient participating in therapy. Says she continues to be lightheaded with therapy. Pain is tolerable with PO medication. Tolerating PO diet. No issues with B/B. Physical Exam Physical Exam: Patient ambulating with CG with walker. Slow. Right knee silverlon dressing intact. NV intact B LE. B winston hose on. Results & Data Vital Signs (Past 12 Hours) Vital Signs Temp Pulse Pulse Pulse Resp BP Pulse Ox 03/10/19 13:25 109 H 145/74 H 03/10/19 11:41 88 L 03/10/19 11:13 112 H 03/10/19 11:11 37 C 112 H 18 142/86 H 93 03/10/19 07:00 37.1 C 123 H 19 118/79 92 03/10/19 05:20 94 H 03/10/19 04:07 36.9 C 115 H 19 120/73 90 Pulse Ox 03/10/19 13:25 03/10/19 11:41 03/10/19 11:13 03/10/19 11:11 03/10/19 07:00 03/10/19 05:20 90 03/10/19 04:07 Laboratory Results 03/10/19 03/10/19 Range/Units 07:07 07:07 PT 21.7 H (9.0-12.0) Seconds INR 2.2 H (0.9-1.1) Sodium 138 (136-145) mmol/L Potassium 3.8 (3.5-5.1) mmol/L Chloride 102 (98-107) mmol/L Carbon Dioxide 29 (21-32) mmol/L Anion Gap 8.0 (3-11) BUN 18 (7-18) mg/dl Creatinine 1.01 (0.6-1.2) mg/dl Est Cr Clr Drug Dosing 46.8 ml/min Est GFR ( Amer) 60.9 Est GFR (Non-Af Amer) 52.5 BUN/Creatinine Ratio 17.7 (10-20) Glucose 104 H (70-99) mg/dl Calcium 8.8 (8.5-10.1) mg/dl
--- NOTE | 2019-03-10 15:55 | Hospitalist Progress Note ---
Date of Service March 10, 2019 Assessment & Plan (1) Status post right knee replacement: POD#6 s/p R TKA by Dr. Mcarthur Developed A-fib RVR postop pain management, Activity, wound care as per ortho Continue incentive spirometry Monitor CBC (2) Paroxysmal atrial fibrillation: Developed A Fib with RVR with HR in 140s overnight on POD#0 and was transferred to telemetry Asymptomatic Metoprolol dose increased to 50 mg TID Volume status improved with minimal diuretics On Coumadin for anticoagulation INR 2.2 Appreciate cardiology input Lisinopril discontinued as blood pressure relatively low Added digoxin Continue Coumadin (3) CHF (congestive heart failure): Management as above Diuretics PRN Hypoxia: nocturnal pulse oximetry done May need 2 step prior to discharge We will recheck chest x-ray today (4) Hypertension: Stable Continue Lopressor lisinopril discontinued (5) CKD (chronic kidney disease), stage III: Creatinine at baseline Monitor renal function (6) Hyperlipidemia: Continue statin DVT Px: Coumadin Disposition As per primary team Subjective Patient is seen and examined at bedside Complains of knee pain after having physical therapy this morning Heart rate elevated this morning, which improved after digoxin dose Complains of intermittent nausea and dizziness Denies any chest pain, palpitations, shortness of breath INR in therapeutic range Will repeat chest x-ray to assess for pulmonary vascular congestion Review of Systems Review of Systems: All systems reviewed & are unremarkable except as noted in HPI & below Physical Exam Physical Exam: General: Obese, no apparent distress Head: normocephalic, atraumatic Eyes: PERRL, EOMI Neck: supple, trachea midline Lungs: Decreased breath sounds at bases, CTA CV: irregularly irregular, +Tachycardia, systolic murmur, trace pretibial edema Abd: normal BS, soft, non-tender Ext: no cyanosis, no calf tenderness; Right knee with surgical dressing Neuro: A&O x 3, no focal deficits noted, normal affect Skin: warm, dry Results & Data Vital Signs (Past 12 Hours) Vital Signs Temp Pulse Pulse Pulse Pulse Resp BP 03/10/19 15:37 37.1 C 114 H 18 167/82 H 03/10/19 15:09 03/10/19 13:25 109 H 145/74 H 03/10/19 11:41 03/10/19 11:13 112 H 03/10/19 11:11 37 C 112 H 18 142/86 H 03/10/19 07:00 37.1 C 123 H 19 118/79 03/10/19 05:20 94 H 03/10/19 04:07 36.9 C 115 H 19 120/73 Pulse Ox Pulse Ox 03/10/19 15:37 91 03/10/19 15:09 86 L 03/10/19 13:25 03/10/19 11:41 88 L 03/10/19 11:13 03/10/19 11:11 93 03/10/19 07:00 92 03/10/19 05:20 90 03/10/19 04:07 90 Laboratory Results BMP 03/10/19 07:07 Sodium 138 Potassium 3.8 Chloride 102 Carbon Dioxide 29 BUN 18 Creatinine 1.01 Glucose 104 H Calcium 8.8
[2019-03-10] MEDS ORDERED: WARFARIN SOD 2 MG TAB PO SCH (16:00)
[2019-03-10] MEDS ORDERED: DIGOXIN 0.25 MG TAB PO SCH (16:00)
--- NOTE | 2019-03-10 16:33 | XRay Report ---
XR chest 1V portable CLINICAL HISTORY: Pulmonary vascular congestion dyspnea COMPARISON STUDY: 03/07/2019 FINDINGS: Mild stable cardiomegaly. Lungs are clear. Diaphragms are smooth. There are no focal infilt rative changes. IMPRESSION: Mild stable cardiomegaly. No acute process. The above report was generated using voice recognition software. It may contain grammatical, syntax or spelling errors. Electronically signed by: Benoit Lemus M.D. 03/10/2019 4:32 PM
[2019-03-10] MEDS: ATORVASTATIN 40 MG TAB PO SCH (20:53)
[2019-03-10] MEDS: SENNA 8.6 MG TAB PO SCH (20:56)
[2019-03-11] MEDS: DOCUSATE SODIUM 100 MG CAP PO SCH (07:28)
[2019-03-11] MEDS: FERROUS GLUCONATE 324 MG TAB PO SCH (07:28)
[2019-03-11] MEDS: GABAPENTIN 100 MG CAP PO SCH (07:28)
[2019-03-11] MEDS: METOPROLOL TARTRATE 50 MG TAB PO SCH (07:28)
[2019-03-11] MEDS: MULTIVITAMIN TAB PO SCH (07:28)
[2019-03-11] MEDS: LORATADINE 10 MG TAB PO SCH (07:28)
[2019-03-11] MEDS: CHOLECALCIFEROL 1,000 UNITS TAB PO SCH (07:28)
[2019-03-11] MEDS: ASCORBIC ACID 500 MG TAB PO SCH (07:28)
[2019-03-11 08:36] LABS: INR 1.9 (0.9-1.1); Prothrombin Time 18.8 Seconds (9.0-12.0)
[2019-03-11] MEDS ORDERED: DIGOXIN 0.25 MG TAB PO SCH (09:00)
[2019-03-11] MEDS: ONDANSETRON INJ 2 MG/ML 2 ML VIAL IV PRN (10:20)
--- NOTE | 2019-03-11 10:20 | Hospitalist Progress Note ---
Date of Service March 11, 2019 Assessment & Plan (1) Status post right knee replacement: POD#7 s/p R TKA by Dr. Mcarthur Developed A-fib RVR postop pain management, Activity, wound care as per ortho Continue incentive spirometry Monitor CBC (2) Paroxysmal atrial fibrillation: Developed A Fib with RVR with HR in 140s overnight on POD#0 and was transferred to telemetry Asymptomatic Metoprolol dose increased to 75mg BID Volume status improved with minimal diuretics On Coumadin for anticoagulation INR 1.9 today Appreciate cardiology input Added digoxin--plan to discharge on 125mcg 3 times a week (Sunday, sunday, Sunday) Continue Coumadin (3) CHF (congestive heart failure): Management as above Diuretics PRN Hypoxia: nocturnal pulse oximetry done May need 2 step prior to discharge We will recheck chest x-ray today (4) Hypertension: Stable Continue Lopressor Restart lisinopril at 2.5 mg daily (5) CKD (chronic kidney disease), stage III: Creatinine at baseline Monitor renal function (6) Hyperlipidemia: Continue statin DVT Px: Coumadin Disposition As per primary team Subjective Patient is seen and examined at bedside Complains of nausea and dizziness this morning which later improved knee pain is controlled Heart rate is controlled Denies any chest pain, palpitations, shortness of breath INR 1.9 today Review of Systems Review of Systems: All systems reviewed & are unremarkable except as noted in HPI & below Physical Exam Physical Exam: General: Obese, no apparent distress Head: normocephalic, atraumatic Eyes: PERRL, EOMI Neck: supple, trachea midline Lungs: Decreased breath sounds at bases, CTA CV: irregularly irregular, systolic murmur, trace pretibial edema Abd: normal BS, soft, non-tender Ext: no cyanosis, no calf tenderness; Right knee with surgical dressing Neuro: A&O x 3, no focal deficits noted, normal affect Skin: warm, dry Results & Data Vital Signs (Past 12 Hours) Vital Signs Temp Pulse Pulse Resp BP Pulse Ox 03/11/19 07:28 119 H 03/11/19 07:18 36.7 C 119 H 19 152/89 H 92 03/11/19 04:13 37.2 C 98 H 20 128/80 91 03/10/19 22:55 37.3 C 94 H 19 129/80 91
--- NOTE | 2019-03-11 10:22 | Cardiology Progress Note ---
Date of Service March 11, 2019 Assessment & Plan (1) Paroxysmal atrial fibrillation: Heart rate improved this morning after oral digoxin and metoprolol. Metoprolol transition to 75 mg twice daily. She has received 4 doses of digoxin, 250 mcg over the past 3 days. Will reduce dose to 125 mcg on Sunday, Sunday, and Sunday. Zofran as needed for nausea. Continue to monitor telemetry. (2) Status post right knee replacement: Physical therapy as tolerated. Continue Coumadin stroke prophylaxis and DVT prophylaxis. (3) Mitral stenosis: (4) Hypotension: Resolved. Restart lisinopril 2.5 mg daily at time of discharge. Subjective Patient seen and examined at the bedside. Heart rate improved this morning. Notes nausea after receiving fourth dose of digoxin. Metoprolol transition to 75 mg twice daily. Reports episode of lightheadedness. Blood pressure remains mildly elevated. No significant pauses or bradycardia on telemetry. Review of Systems Review of Systems: All systems reviewed & are unremarkable except as noted in HPI & below Physical Exam Physical Exam: General: NAD, AAO x3, well nourished. HEENT: Normocephalic. Atraumatic. Conjunctiva pink, no scleral icterus. Neck: No carotid bruits, the carotid upstrokes are brisk. No JVD. No HJR Heart: Irregular rhythm, normal S-1 and S-2. No murmurs or rub appreciated. PMI is not displaced. No RV heave. Lungs: Diminished breath sounds at the bases bilaterally. Scant crackles at the left base. Abdomen: Normal bowel sounds. Soft. Nontender. No masses or organomegaly. No abdominal bruits. Extremities: No clubbing, cyanosis, or edema. Pulses: radial=2/4, Dorsalis pedis =2/4, posterior tibial=2/4. Neuro: Cranial nerves grossly intact. No focal motor deficit. Results & Data Vital Signs (Past 12 Hours) Vital Signs Temp Pulse Pulse Resp BP Pulse Ox 03/11/19 07:28 119 H 03/11/19 07:18 36.7 C 119 H 19 152/89 H 92 03/11/19 04:13 37.2 C 98 H 20 128/80 91 03/10/19 22:55 37.3 C 94 H 19 129/80 91
[2019-03-11] MEDS: ORTHO WARFARIN NOMOGRAM SCH (10:41)
[2019-03-11] MEDS: TRAMADOL HCL 50 MG TABLET PO PRN (13:41)
--- NOTE | 2019-03-11 14:00 | Orthopedic Progress Note ---
Date of Service March 11, 2019 Assessment & Plan (1) Status post right knee replacement: POD # 7 s/p Right TKA, Hx of A-fib Patient seen by Cardio and deemed stable for D/C to [facility]. On digoxin and metoprolol dosed by Cardio. Patient advised to f/u with Cardio within 2-4 wks and PCP within 1 wk after DC from [facility]. Patient to continue Coumadin chronically for A-fib as well as DVT prophylaxis. PT/INR to be followed and doses accordingly. DVT Prophylaxis: TEDs on operative leg for 3 weeks minimum Regular diet. PO meds for pain control Ice to right knee for swelling and pain control. Silverlon dressing to remain on until f/u appointment. D/C planning: Stable from ortho standpoint. [facility] accepted and to be D/Cd today. I, Dr. Mcarthur, saw and examined the patient today and agree with my PA's above findings and plan of care which were discussed. Subjective Patient working with therapy. Daughter in law in the room. Nausea better controlled with zofran. Tolerates regular diet. No issues with bowel or bladder. PO pain medicine controlling pain. Seen by Cardiology earlier and given ok to be DCd to [facility] for contd rehab. Review of Systems Review of Systems: All systems reviewed & are unremarkable except as noted in HPI & below Physical Exam Physical Exam: Patient ambulating with CG with walker. Right knee Silverlon intact. 1+ effusion. NV intact B LE. Ramone hose donned. Able to wiggle toes and ankle. 1+ PE B LE. RLE: Neurvascularly intact. calf soft and non-tender. Results & Data Vital Signs (Past 12 Hours) Vital Signs Temp Pulse Pulse Resp BP Pulse Ox 03/11/19 11:08 37.2 C 90 18 132/85 91 03/11/19 07:28 119 H 03/11/19 07:18 36.7 C 119 H 19 152/89 H 92 03/11/19 04:13 37.2 C 98 H 20 128/80 91 Laboratory Results 03/11/19 Range/Units 07:37 PT 18.8 H (9.0-12.0) Seconds INR 1.9 H (0.9-1.1)
[2019-03-11] MEDS ORDERED: WARFARIN SOD 2.5 MG TAB PO SCH (16:00)
[2019-03-12] MEDS ORDERED: DIGOXIN 0.125 MG TAB PO SCH ×2 (09:00)
--- NOTE | 2019-03-12 11:59 | Coding Query ---
CONGESTIVE HEART FAILURE To Promote full compliance with coding requirements relating to patient care, physician participation is requested in all cases of hcc coders uncertainty. Please assist us with the following questions. A diagnosis of Congestive Heart Failure is documented in the patient's medical record. To accurately code this diagnosis and to compare patient severity, we ask that you specify the type of heart failure by placing an X within the parenthesis (x). Pt transferred to telemetry 03/05 - cxr shows acute chf - /fluid overload. Please check below, if applicable for the diagnosis that was treated. Thank you ! Leo Mansfield, CIVIL PREPAREDNESS OFFICER [facility] SYSTOLIC HEART FAILURE ( ) Acute ( ) Chronic ( ) Acute on Chronic ( ) Rheumatic ( ) Unknown DIASTOLIC HEART FAILURE ( ) Acute ( ) Chronic ( ) Acute on Chronic ( ) Rheumatic ( X) Unknown COMBINED SYSTOLIC AND DIASTOLIC HEART FAILURE ( ) Acute ( ) Chronic ( ) Acute on Chronic ( ) Rheumatic ( ) Unknown Was the CHF Present On Admission? Please check the appropriate box: ( ) Present on Admission ( ) Not Present On Admission (X ) Clinically undetermined MTDD
--- NOTE | 2019-03-12 13:54 | Discharge Summary ---
Date of Service March 11, 2019 Principal Diagnosis Right Knee Osteoarthritis; S/P Right Total Knee Replacement 03-04-19 Discharge Data Allergies Allergy/AdvReac Type Severity Reaction Status Date / Time codeine Allergy Unknown NAUSEA AND Verified 03/04/19 08:49 VOMITING oxycodone AdvReac Mild HEADACHE, Verified 03/04/19 08:49 VOMIT Consultations 03/04/19 13:01 Consult Case Management - Discharge Planning Routine 03/04/19 13:12 Consult Hospitalist Routine 03/06/19 10:13 Consult Cardiology Routine Procedures Performed Operation Date: 03/04/19 10:20 Actual Procedures p Right Total Knee Arthroplasty(Right) - Dedrick Wil Mcarthur MD Ordered Studies 03/04/19 05:00 US - OR guided needle placemen Routine Hospital Course (1) Status post right knee replacement: 78 yr old female with PMHx of HTN, paroxysmal atrial fibrillation on coumadin, CKD III, h/o L carotid endarterectomy, hyperlipidemia admitted to [facility] after having Right Total Knee Replacement performed by Dr Mcarthur on 03-04-19. Anesthesia included a spinal and regional block. Surgery was without incident. She was transferred to Med/Surg. During night of POD 0 patient transferred to telemetry after developing A-fib with RVR and HR in 140s as well as evidence of acute congestive heart failure. Medicine continued to follow and Cardiology was consulted. Symptomatically she was experiencing lightheadedness, and nausea. Over the course of the next 6 days, patient required treatment for these issues with medication management including lasix, metoprolol, and digoxin. She also became hypotensive and her lisinopril was held. Patient throughout this time required O2 nasal canula. Zofran was added. On POD 7 Medicine and Cardiology approved discharge to [facility] for continued Rehab. Her HR, CHF, and Hypoxia, and Hypotension improved. Cardiology recommended continued digoxin and metoprolol upon D/C and ok to restart lisinopril. She is to f/u with Cardiology 2-4wks and Medicine 1wk after D/C to home from [facility]. From an Orthopedic standpoint, patient did well after surgery. DVT prophylaxis consisted of Coumadin, Ashlie hose, and foot pumps. She tolerated transition from IV pain meds to PO pain meds. She tolerated regular diet. She was had no issues with bowel or bladder. On POD 1 her right knee immobilizer was stopped because it was more of a hinderance to the patient and she had good quad control. She ambulated with a walker. On POD 2 her dressings were removed and changed to silverlon dressing which is waterproof and is to remain on for 2wks until f/u appointment. On POD 7 patient was deemed stable to discharge to [facility]. She was discharged on oxycodone, vitamin C, iron, tylenol, coumadin, metoprolol, digoxin, senokot, and zofran as well as her home medications. She will continue ambulation with a walker and ashlie hose until follow-up with our office on 03-19-19 at 10:45. She was advised to call [phone] with any questions or concerns. Total Time Total Time Spent Total Time Spent (In Minutes): 30 min Discharge Plan Discharge Items Patient Disposition: Transfer Inpatient Rehab Fac Reason For Visit: Right Knee Osteoarthritis Discharge Diagnosis: S/P Right Total Knee Replacement Discharge Goals: Decrease discomfort, Improve function, Increase independence and Therapeutic intervention Activity: Per 'Additional Instructions' section Lifting: None Bathing: Keep incision dry Bathing Comment: silverlon is waterproof, however no baths or pools, shower only Exercise Comment: per physical therapy protocol Driving/Machine Use Comment: No driving at least until f/u appointment in 2weeks and will re-evaluate Weightbearing: Right weightbearing Weightbearing Comment: as tolerated with walker and progess to cane with physical therapy Non-emergency contact: Surgeon Call non-emergency contact if: your pain is not controlled, your temperature is above 101.5, your wound has increased redness and your wound has increased drainage Follow-up/Referrals: Dedrick Mcarthur MD [Physician] - 03/19/19 10:45 am (with Elizabeth Covington PA-C) Teri Duncan MD [Primary Care Provider] - Diet: Regular Addtl Provider Instructions: Post-operative Instructions Pain Expect to be in a fair amount of pain after surgery. Remember, our goal is not to eliminate your pain, but to make it tolerable. It is a good idea to stay ahead of your pain by taking the medications you were prescribed once you get home. Typically, the pain starts improving 3-7 days after surgery. You should start weaning off the narcotic pain medication (oxycodone) as soon as your pain improves. Please call our office if your pain is not adequately controlled. Ice Ice your operative site at least 5 times a day for 15-30 minutes at a time. Make sure you have a thin cloth between the ice and your skin to prevent newton bite. This is especially important if you received a nerve block. Continue icing your operative site for the first 5-7 days after surgery, then as needed. Diet/Nausea/Vomiting Start by drinking clear liquids and eating crackers. If you can tolerate this, then you may resume your normal diet. If you feel nauseated or vomit, take Zofran/ondansetron (if prescribed). Please call our office if you have intractable nausea or vomiting, or, if after hours, you may go to the Emergency Room for help. Constipation Constipation is a common side effect of narcotic pain medication. If you have not had a bowel movement within 2 days after surgery, we recommend purchasing an over the counter laxative such as Milk of Magnesia, Dulcolax, or Miralax from a local pharmacy, and taking it as instructed. Call our clinic if any questions. Nerve block The anesthesia team sometimes places a nerve block to help with post-operative pain control. This results in significant numbness and inability to move the extremity. The nerve block usually wears off in 8-12 hours, but sometimes can last up to 24 hours. Please call our office if you are still unable to move your extremity after 24 hours, unless you received a pain pump to take home. Nerve blocks typically wear off quickly, so start taking pain medication as soon as you start feeling soreness near your surgical site. Weight bearing and Range of Motion. You are weightbearing as tolerated with walker to start and can progress to a cane with physical therapy as you tolerate. No restrictions with range of motion. Physical therapy Initially you will receive therapy at Rehab facility and upon D/C they will set up Home Health PT. When you see us at your 2week appointment we can discuss possible outpatient therapy based on how you are doing. Wound care and showering We will inspect your wound at your first post-operative visit, and may do a dressing change at that time. Most patients will be in a water-proof dressing that is removed 14 days after surgery. It is normal to see some dried blood on the dressing. Do not remove your dressing, paper strips or sutures yourself unless you are given permission. Showering is allowed the day after surgery. Do not scrub or remove any dressings. The wound should not be submerged underwater (i.e. in a bathtub or pool) until 4 weeks after surgery ASHLIE stockings If you were given white stockings, these are to be worn at all times during the day and can be removed at night. Wear until your f/u appointment in 2weeks. Driving No driving until at least your 2week appointment. Will re-evaluate at that time. Return to Work Your return to work depends on what surgery was done and what type of work you do. Please bring any paperwork your employer needs completed to your first post-operative visit. Also, bring a description of your job duties, as this helps us to understand what risks you may face at work. Travel Avoid long distance travel (greater than 1 hour) in airplanes and cars for the first 4-6 weeks after surgery if you can. If you must travel, please let us know and we can discuss details. Follow-up 03-19-19 at 10:45 with Elizabeth Covington PA-C When to call the office [phone] It is normal to have swelling and bruising in the limb that was operated on. This will improve with time. It is also normal to have fevers for the first 2 days after surgery. Reasons you should call your doctor include: Uncontrolled pain; Nausea, vomiting, or constipation that does not improve with medication; Fevers over 101.5, chills, sweats; Drainage or bleeding from the wound; Foul odor; Spreading areas of redness; Any other concerns New Medications: Oxycodone as needed for pain control moderate to severe pain Tylenol as needed for pain control mild pain Vit C for 2 weeks Iron for 2 weeks Coumadin 2.5mg (dose accordingly) Zofran as needed for nausea Senokot as needed for constipation Director Of Vital Statistics prescribed digoxin and metoprolol Follow up with your Primary Care Physician in 1 week after being discharged from Rehab Facility Follow up with your Director Of Vital Statistics in 2-4 weeks Seek immediate medical attention if your symptoms reoccur or worsen Prescriptions: New metoprolol tartrate 50 mg Tablet 75 mg PO BID 30 Days Qty: 90 RF: 0 digoxin 125 mcg Tablet 125 mcg PO UD Qty: 30 RF: 0 sennosides [Senokot] 8.6 mg Tablet 17.2 mg PO HS Qty: 14 RF: 0 acetaminophen [Mapap (acetaminophen)] 325 mg Tablet 650 mg PO Q6H PRN (Reason: pain, mild) Qty: 60 RF: 0 warfarin [Coumadin] 2.5 mg Tablet 2.5 mg PO TODAY@1600 Qty: 60 RF: 0 ascorbic acid (vitamin C) [Vitamin C] 500 mg Tablet 500 mg PO BIDM 7 Days Qty: 14 RF: 0 oxycodone 5 mg Tablet 5 - 10 mg PO Q4H PRN (Reason: pain, severe) Qty: 30 RF: 0 ferrous gluconate 324 mg (38 mg iron) Tablet 324 mg PO BIDM 7 Days Qty: 14 RF: 0 ondansetron HCl [Zofran] 4 mg tablet 4 mg PO Q8H PRN (Reason: nausea and vomiting) Qty: 30 RF: 0 Continued gabapentin 100 mg Capsule 200 mg PO BID RF: 0 cholecalciferol (vitamin D3) [Vitamin D3] 2,000 unit Tablet 2,000 unit PO QAM RF: 0 multivitamin Tablet 1 tab PO QAM RF: 0 atorvastatin 80 mg Tablet 40 mg PO QPM RF: 0 alendronate 70 mg Tablet 70 mg PO WK RF: 0 lisinopril 5 mg Tablet 2.5 mg PO QAM RF: 0 loratadine 10 mg Tablet 10 mg PO QAM RF: 0 Discontinued Centrum Silver Women 8 mg iron-400 mcg-300 mcg Tablet 1 tab PO QAM RF: 0 metoprolol tartrate 25 mg Tablet 37.5 mg PO TID RF: 0 tramadol 50 mg Tablet 50 mg PO Q6H PRN (Reason: Pain) RF: 0 warfarin 4 mg Tablet 4 mg PO QPM RF: 0 Stand-Alone Forms: [facility]/Other Patient Handouts: Digoxin, Fibrillation Atrial Dc Discharge Orders: Discharge Order (Routine); Ordered 03/11/19 Ordered By: Rafaela Covington Admission Data Admit Date/Time: 03/04/19 13:01 Attending Provider: Dedrick Mcarthur Admit Provider: Dedrick Mcarthur Primary Care Provider: Teri Duncan Other Providers: Malcolm Cassidy ; Lina,Dung J Service: Telemetry Other Interventions: Discharge Summary Assessment (RN) Last Done: 03/11/19 14:16 DC Date/Time DO NOT enter until pt leaves facility: 03/11/19 15:10
== END 2019-03-11 15:10 | DRG 470 ==
LOC: ASU 08:23 → 3E 13:01 → 2S 03-05 01:24